=== PATIENT | male | born 1950 | race Caucasian/White ===

== ENCOUNTER 2025-09-11 11:50 | Outpatient (CLI) | payer MEDICARE, SELFPAY ==
--- OUTSIDE RECORDS SUMMARY | 2025-07-28 11:00 | XMS_ITS | Encounter Summary ---
Author Organization [facility] Address [address] [place] [address] Care Team Providers Care Charter Bus Driver Name Role Phone Gideon Parsons MD Primary Care Provider [phone] Reason for Referral * Cardiac (Routine) - Closed Specialty Diagnoses / Procedures Referred By Yanique t Referred To Contact Diagnoses Premature ventricular contractions (PVCs) (VPCs) Abnormal EKG Procedures Holter Monitor - 72 Hour Up To 15 Days Anyi Palafox APRN [address] [place] [address] Phone: tel: fax: [facility] [address] [place] [address] Phone: tel: fax: Referral ID Status Reason Start Date Expiration Date Visits Re quested Visits Authorized [id number] Closed 07/28/2025 10/27/2026 1 1 * Medical Care (Routine) - Closed Specialty Diagnoses / Procedures Referred By Yanique aguilera Referred To Contact Diagnoses Premature ventricular contractions (PVCs) (VPCs) Snoring Overweight (BMI 25.0-29.9) Abnormal EKG Procedures Home Sleep Study Anyi Palafox APRN [address] [place] [address] Phone: tel: fax: [facility] [address] [place] [address] Phone: tel: fax: Referral ID Status Reason Start Date Expiration Date Visits Re quested Visits Authorized [id number] Closed 07/28/2025 10/27/2026 1 1 * Diagnostic Imaging (Routine) - Closed Specialty Diagnoses / Procedures Referred By Yanique aguilera Referred To Contact Diagnoses Premature ventricular contractions (PVCs) (VPCs) Abnormal EKG Procedures Adult Stress Echo W/ Cont or Stress Agent if Necessary Per Protocol Anyi Palafox APRN [address] [place] [address] Phone: tel: fax: [facility] [address] [place] [address] Phone: tel: fax: Referral ID Status Reason Start Date Expiration Date Visits Re quested Visits Authorized [id number] Closed 07/28/2025 10/27/2026 1 1 Reason for Visit * Reason Comments Palpitations Pt is here for new p atient appointment. Referred by primary care provider Dr. ParsonsPt complains of palpitations for 6 months Pt denies shortness of breath or chest pain.Pt states he does snoreNeck size 16 * Consultation (Urgent) - Closed Specialty Diagnoses / Procedures Referred By Yanique aguilera Referred To Contact Cardiology Diagnoses Primary insomnia INCREASING IN FREQUENCY PVCs Gideon Parsons MD [address] [facility] [address] [place] [address] Phone: tel: fax: Rosa Winkler MD [address] [place] [address] Phone: tel: fax: Referral ID Status Reason Start Date Expiration Date Visits Re quested Visits Authorized [id number] Closed 06/12/2025 09/11/2026 1 1 Encounter Details Date Type Department Care Team (Late st Contact Info) Description 07/28/2025 11:00 AM EST Office Visit [facility] [address], [place] [address] Anyi Palafox APRN [address] [place] [address] Abnormal EKG; Premature ventricular contractions (PVCs) (VPCs); Palpitations; Bradycardia; Primary hypertension; Snoring; Overweight (BMI 25.0-29.9) Social History Tobacco Use Types Packs/Day Years Used Date Smoking Tobacco: Never Smokeless Tobacco: Never Tobacco Cessation:Counseling Given: No Alcohol Use Standard Drinks/Week Comments Never 0 (1 standard drink = 0.6 oz pur e alcohol) Abuse Screen Answer Date Recorded Unsafe at Home or Work/School Not on file Feels Threatened by Someone? Not on file 08/2023 Does Anyone Keep You from Co ntacting Others or Doint Things Outside the Home? Not on file 07/05/2023 Physical Sign of Abuse Present Not on file 1 Housing Stability Answer Date Recorded Current Living Arrangements Not on file 06/24 Potentially Unsafe Housing Conditions Not on veto e 07/05/2023 Family and Community Support Answer Sony e Recorded Help with Day-to-Day Activities Not on file 07/05/2023 Lonely or Isolated Not on file 07/05/2023 Employment Answer Date Recorded Do you want help finding or keeping work or a annalise b? Not on file 07/05/2023 Disabilities Answer Date Recorded Concentrating, Remembering, or Making Decisions Difficulty Not on file 07/05/2023 Doing Errands Independently Difficulty Not on fi le 07/05/2023 Education Answer Date Recorded Help with school or training? Not on file Preferred Language Not on file 07/05/2023 Sex and Gender Information Value Date Recorded Sex Assigned at Male 07/21/2025 10:52 AM EDT Legal Sex Male 2:21 PM EST Gender Identity Not on file Sexual Orientation Straight 07/21/2025 10 :52 AM EDT documented as of this encounter Last Filed Vital Signs Vital Sign Reading Time Taken Comments Blood Pressure 124/74 07/28/2025 11:26 AM EST Pulse 68 07/28/2025 11:26 AM EST Temperature - - Respiratory Rate - - Oxygen Saturation 98% 07/28/2025 11:26 AM EST Inhaled Oxygen Concentration - - Weight 105 kg (231 lb 12.8 oz) 07/28/2025 11:26 AM EST Height 188 cm (6' 2 ) 07/28/2025 11:26 AM EST Body Mass Index 29.76 07/28/2025 11:26 AM EST documented in this encounter Progress Notes * Javy Anyi Restrepo, MELI - 07/28/2025 11:00 AM ESTAssociated Order(s): ECG 12 Lead Pre-Procedure Diagnose(s): Premature ventricular contractions (PVCs) (VPCs) Post-Procedure Diagnose(s): Premature ventricular contractions (PVCs) (VPCs) Images from the original note were not included. Date: 07/28/2025 Name: Reinier Macedo : 1950 PCP: Gideon Parsons MD REF: Gideon Parsons MD Sleep and/or Cardiology Consulting Provider Note ..Palpitations (Pt is here for new patient appointment. Referred by primary care provider Dr. Parsons/Pt complains of palpitations for 6 months Pt denies shortness of breath or chest pain./Pt states he does snore/Neck size 16) History of Present Illness 75-year-old male presents for cardiac care due to 6-month history of palpitations. Referred by PCP,Dr. Wyatt. No subjective palpitations, but EKG showed occasional extra beats. 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 No associated symptoms (SOB, dizziness, chest pain, swelling). Functional capacity unchanged. Under PCP care for 1 year. Previous physical exam and EKG normal. Sonogram normal. No stress test done. Active lifestyle, regular treadmill use. Daily caffeine intake: 1 cup of coffee. No tea. 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 No waking up tired or daytime sleepiness. 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 Plays basketball, frequent treadmill use at gym. 1 cupof coffee daily in the morning. [employer] Scale is (out of 24): Total score: 2 Cardiology and Sleep Related History: Review of Systems - Palpitations, PVCs, snoring, bradycardia Agrees to Lavelle There are no discontinued medications. Allergies Allergen Reactions Penicillins Itching Singulair [Montelukast] Itching Current Outpatient Medications: lisinopril (PRINIVIL,ZESTRIL) 10 MG tablet, Take 1 tablet by mouth Daily., Disp: , Rfl: mometasone (NASONEX) 50 MCG/ACT nasal spray, Administer 2 sprays into the nostril(s) as directed byprovider Daily., Disp: , Rfl: oxybutynin XL (DITROPAN-XL) 5 MG 24 hr tablet, Take 1 tablet by mouth Daily., Disp: , Rfl: Past Medical History: Diagnosis Date Colon polyps Hypertension Kidney stones Prostate cancer 07/2022 Patient Active Problem List Diagnosis Bradycardia Hypertension Colon polyps Premature ventricular contractions (PVCs) (VPCs) Snoring Overweight (BMI 25.0-29.9) Abnormal EKG Palpitations Family History Problem Relation Name Age of Onset Stroke Mother Diabetes Father Dementia Father family history includes Dementia in his father; Diabetes in his father; Stroke in his mother. Social History Socioeconomic History Marital status: Tobacco Use Smoking status: Never Smokeless tobacco: Never Vaping Use Vaping status: Never Used Substance and Sexual Activity Alcohol use: Never Drug use: Never Sexual activity: Defer Vital Signs: BP 124/74 (BP Location: Right arm, Patient Position: Sitting, Cuff Size: Adult) Pulse 68 Ht 188cm (74 ) Wt 105 kg (231 lb 12.8 oz) SpO2 98% BMI 29.76 kg/m?? Estimated body mass index is 29.76 kg/m?? as calculated from the following: Height as of this encounter: 188 cm (74 ). Weight as of this encounter: 105 kg (231 lb 12.8 oz). Physical Exam Vitals reviewed. Constitutional: Appearance: Normal appearance. He is well-developed. HENT: Head: Normocephalic and atraumatic. Eyes: General: No scleral icterus. Pupils: Pupils are equal, round, and reactive to light. Cardiovascular: Rate and Rhythm: Normal rate. Rhythm irregular. Heart sounds: Normal heart sounds. No murmur heard. Pulmonary: Breath sounds: Normal breath sounds. No wheezing or rhonchi. Musculoskeletal: General: Normal range of motion. Right lower leg: No edema. Left lower leg: No edema. Skin: General: Skin is warm and dry. Capillary Refill: Capillary refill takes less than 2 seconds. Coloration: Skin is not cyanotic. Nails: There is no clubbing. Neurological: Mental Status: He is alert and oriented to person, place, and time. Motor: No weakness. Gait: Gait normal. Psychiatric: Mood and Affect: Mood normal. Behavior: Behavior is cooperative. Thought Content: Thought content normal. Physical Exam Heart: PVCs noted on auscultation. Lungs: Clear bilaterally. Results Sonogram: Normal. EKG: PVCs. ECG 12 Lead Date/Time: 07/30/2025 12:39 PM Performed by: Anyi Palafox APRN Authorized by: Anyi Palafox APRN Comparison: not compared with previous ECG Previous ECG: no previous ECG available Rhythm: sinus rhythm Ectopy: multifocal PVCs Rate: normal BPM: 75 ST Segments: ST segments normal T Waves: T waves normal QRS axis: normal Other: no other findings Other findings: non-specific ST-T wave changes Clinical impression: abnormal EKG Comments: Frequent ventricular premature complexes in a bigeminal pattern. Note from PCP states recent EKG May 2025 sinus rhythm with PVCs. Assessment and Plan Diagnoses and all orders for this visit: 1. Abnormal EKG - Adult Stress Echo W/ Cont or Stress Agent if Necessary Per Protocol; Future - Home Sleep Study; Future - Holter Monitor - 72 Hour Up To 15 Days; Future 2. Premature ventricular contractions (PVCs) (VPCs) - ECG 12 Lead - Adult Stress Echo W/ Cont or Stress Agent if Necessary Per Protocol; Future - Home Sleep Study; Future - Holter Monitor - 72 Hour Up To 15 Days; Future 3. Palpitations 4. Bradycardia 5. Primary hypertension 6. Snoring - Home Sleep Study; Future 7. Overweight (BMI 25.0-29.9) - Home Sleep Study; Future Assessment & Plan - Apply Holter monitor for 2 weeks. - Note strenuous activities during monitoring. - Schedule stress test. - Discuss risks/benefits of stress test. - Limit caffeine to 1 cup of coffee/day. - Need copy of echo that PCP did - Recommend home sleep study. - Discuss link between sleep apnea and PVCs. - Explain home sleep study procedure and benefits. Follow-up: After Holter monitor and stress test. Recommendations: ER if symptoms increase and Report if any new/changing symptoms immediately Follow Up Return for After testing. Patient or patient passenger service representative verbalized consent for the use of Ambient Listening during the visit with Anyi Palafox APRN for chart documentation. 07/30/2025 12:45 EST Anyi Palafox APRN 07/28/2025 Please note that this explicitly excludes time spent on other separate billable services such as performing procedures or test interpretation, when applicable. This note was created using dictation software which occasionally transcribes nonsensical phrases. Please contact the provider if any clarification is needed. documented in this encounter Plan of Treatment Scheduled Orders Name Type Priority Associated Diagnoses Orde r Schedule Home Sleep Study Sleep Center Routine Premature ventricular contractions (PVCs) (VPCs) Snoring Overweight (BMI 25.0-29.9) Abnormal EKG Expected: 01/24/2026, Expires: 07/28/2026 Scheduled Procedures Name Priority Associated Diagnoses Date/Ti me Left Heart Cath w/ Grafts and Coronaries Abnormal stress test LEFT HEART CATH w/cors Abnormal stress test documented as of this encounter Procedures Procedure Name Priority Date/Time Associated Diagnosis Comments ECG 12-LEAD Routine 07/28/2025 12:39 PM EST Premature ventricular contractions (PVCs) (VPCs) documented in this encounter Results * SE QUAD ONLY W/ EXERCISE (08/12/2025 11:23 AM EST) Anatomical Region Laterality Modality Ultrasound Narrative 08/12/2025 4:23 PM EST Abnormal stress echo consistent with an intermediate risk study for myocardial ischemia. The following left ventricular wall segments are hypokinetic: mid anterior, apical anterior and mid anteroseptal. PVCs before during and after the study. Rest ECG Baseline ECG of normal sinus rhythm noted at rest. PVCs noted. There was no ST segment deviation noted. Stress ECG Stress ECG of normal sinus rhythm noted. Normal ECG with no significant stress induced changes noted. There was no ST segment deviation noted during stress. Arrhythmias during stress: occasional PVCs. Arrhythmias were not significant during stress. Stress ECG was interpretable and is consistent with a normal stress ECG. Ventricle Size / Description Segment augmentation had a normal response to stress. Cavity size behaved normally in response to stress. Stress Description A stress test was performed following the Al protocol. The patient reached the end of the protocol and achieved the target heart rate. The patient experienced no angina during the stress test. Blood pressure demonstrated a normal response to stress. Heart rate demonstrated a normal response to stress. Overall, the patient's exercise capacity was normal. Stress Echo - Peak Stress Findings Post stress images with adequate visualization of myocardium to assess for ischemia. Abnormal stress echo consistent with an intermediate risk study for myocardial ischemia. Recovery ECG During recovery, the patient complained of no significant symptoms following stress. Sinus rhythm was noted during recovery. Normal ECG with no significant recovery phase changes noted. There was no ST segment deviation noted during recovery. Arrhythmias during recovery: occasional PVC's. Arrhythmias were not significant during recovery. Test [employer] ECG [place] Wall Scoring Score Index: 1.18 The following segments are hypokinetic: mid anterior, mid anteroseptal and apical anterior. All other segments are normal. Anyi Kaye Javy GARRISON CV ECHO ORDERABLES Final Result * HOLTER MONITOR >7DAYS UP TO 15 DAYS ([id number]) (07/28/2025 2:54 PM EST) Heart rate (average) 75 CV SUBSTITUTED RESULTING AGENCY Heart rate minimum 51 CV SUBSTITUTED RESULTING AGENCY Heart rate maximum 216 CV SUBSTITUTED RESULTING AGENCY Anatomical Region Laterality Modality Ultrasound Narrative 08/24/2025 6:09 PM EST An abnormal monitor study. Nonsustained ventricular tachycardia, frequent. Fastest episode 216 bpm. Longest episode 10 beats. Patient events corresponded to ventricular ectopy or couplets. Study Description Monitor placed on patient by QUANG MC MA on 07/28/2025 at 10:00 EST. Instructions were provided to patient on use of holter monitor and duration of monitoring. The monitor was scanned on 08/19/2025. The patient was monitored for 11 days 18 hours and 5 minutes. Indications for this exam include dizziness and ABNORMAL EKG. Total beats: [id number]. Average HR: 75. Min HR: 51. Max HR: 216. Study Impressions An abnormal monitor study. Nonsustained ventricular tachycardia, frequent. Fastest episode 216 bpm. Longest episode 10 beats. Patient events corresponded to ventricular ectopy or couplets. Anyi Palafox APRN CV CARDIAC SERVICES ORDERABLES Final Result * ECG 12-LEAD (07/28/2025 12:39 PM EST) Narrative ECG - 07/28/2025 12:39 PM EST Anyi Palafox APRN 07/30/2025 12:48 PM ECG 12 Lead Date/Time: 07/30/2025 12:39 PM Performed by: Anyi Palafox APRN Authorized by: Anyi Palafox APRN Comparison: not compared with previous ECG Previous ECG: no previous ECG available Rhythm: sinus rhythm Ectopy: multifocal PVCs Rate: normal BPM: 75 ST Segments: ST segments normal T Waves: T waves normal QRS axis: normal Other: no other findings Other findings: non-specific ST-T wave changes Clinical impression: abnormal EKG Comments: Frequent ventricular premature complexes in a bigeminal pattern. Note from PCP states recent EKG May 2025 sinus rhythm with PVCs. Procedure Note Anyi Palafox APRN - 07/28/2025 11:00 AM EST Images from the original note were not included. Date: 07/28/2025 Name: Reinier Macedo : 1950 PCP: Gideon Parsons MD REF: Gideon Parsons MD Sleep and/or Cardiology Consulting Provider Note ..Palpitations (Pt is here for new patient appointment. Referred byprimary care provider Dr. Parsons/Pt complains of palpitations for 6 monthsPt denies shortness of breath or chest pain./Pt states he does snore/Necksize 16) History of Present Illness 75-year-old male presents for cardiac care due to 6-month history ofpalpitations. Referred by PCP, Dr. Wyatt. No subjective palpitations, butEKG showed occasional extra beats. 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 No associatedsymptoms (SOB, dizziness, chest pain, swelling). Functional capacityunchanged. Under PCP care for 1 year. Previous physical exam and EKGnormal. Sonogram normal. No stress test done. Active lifestyle, regulartreadmill use. Daily caffeine intake: 1 cup of coffee. No tea. 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 1 cup of coffee daily in the morning. [employer] Scale is (out of 24): Total score: 2 Cardiology and Sleep Related History: Review of Systems - Palpitations, PVCs, snoring, bradycardia Agrees to [place]elle There are no discontinued medications. Allergies Allergen Reactions Penicillins Itching Singulair [Montelukast] Itching Current Outpatient Medications: lisinopril (PRINIVIL,ZESTRIL) 10 MG tablet, Take 1 tablet by mouthDaily., Disp: , Rfl: mometasone (NASONEX) 50 MCG/ACT nasal spray, Administer 2 sprays intothe nostril(s) as directed by provider Daily., Disp: , Rfl: oxybutynin XL (DITROPAN-XL) 5 MG 24 hr tablet, Take 1 tablet by mouthDaily., Disp: , Rfl: Past Medical History: Diagnosis Date Colon polyps Hypertension Kidney stones Prostate cancer 07/2022 Patient Active Problem List Diagnosis Bradycardia Hypertension Colon polyps Premature ventricular contractions (PVCs) (VPCs) Snoring Overweight (BMI 25.0-29.9) Abnormal EKG Palpitations Family History Problem Relation Name Age of Onset Stroke Mother Diabetes Father Dementia Father family history includes Dementia in his father; Diabetes in his father;Stroke in his mother. Social History Socioeconomic History Marital status: Tobacco Use Smoking status: Never Smokeless tobacco: Never Vaping Use Vaping status: Never Used Substance and Sexual Activity Alcohol use: Never Drug use: Never Sexual activity: Defer Vital Signs: BP 124/74 (BP Location: Right arm, Patient Position: Sitting, Cuff Size:Adult) Pulse 68 Ht 188 cm (74 ) Wt 105 kg (231 lb 12.8 oz) SpO2 98% BMI 29.76 kg/m Estimated body mass index is 29.76 kg/m as calculated from thefollowing: Height as of this encounter: 188 cm (74 ). Weight as of this encounter: 105 kg (231 lb 12.8 oz). Physical Exam Vitals reviewed. Constitutional: Appearance: Normal appearance. He is well-developed. HENT: Head: Normocephalic and atraumatic. Eyes: General: No scleral icterus. Pupils: Pupils are equal, round, and reactive to light. Cardiovascular: Rate and Rhythm: Normal rate. Rhythm irregular. Heart sounds: Normal heart sounds. No murmur heard. Pulmonary: Breath sounds: Normal breath sounds. No wheezing or rhonchi. Musculoskeletal: General: Normal range of motion. Right lower leg: No edema. Left lower leg: No edema. Skin: General: Skin is warm and dry. Capillary Refill: Capillary refill takes less than 2 seconds. Coloration: Skin is not cyanotic. Nails: There is no clubbing. Neurological: Mental Status: He is alert and oriented to person, place, and time. Motor: No weakness. Gait: Gait normal. Psychiatric: Mood and Affect: Mood normal. Behavior: Behavior is cooperative. Thought Content: Thought content normal. Physical Exam Heart: PVCs noted on auscultation. Lungs: Clear bilaterally. Results Sonogram: Normal. EKG: PVCs. ECG 12 Lead Date/Time: 07/30/2025 12:39 PM Performed by: Anyi Palafox APRN Authorized by: Anyi Palafox APRN Comparison: not comparedwith previous ECG Previous ECG: no previous ECG available Rhythm: sinus rhythm Ectopy: multifocal PVCs Rate: normal BPM: 75 ST Segments: ST segments normal T Waves: T waves normal QRS axis: normal Other: no other findings Other findings: non-specific ST-T wave changes Clinical impression: abnormal EKG Comments: Frequent ventricular premature complexes in a bigeminal pattern.Note from PCP states recent EKG May 2025 sinus rhythm with PVCs. Assessment and Plan Diagnoses and all orders for this visit: 1. Abnormal EKG - Adult Stress Echo W/ Cont or Stress Agent if Necessary Per Protocol;Future - Home Sleep Study; Future - Holter Monitor - 72 Hour Up To 15 Days; Future 2. Premature ventricular contractions (PVCs) (VPCs) - ECG 12 Lead - Adult Stress Echo W/ Cont or Stress Agent if Necessary Per Protocol;Future - Home Sleep Study; Future - Holter Monitor - 72 Hour Up To 15 Days; Future 3. Palpitations 4. Bradycardia 5. Primary hypertension 6. Snoring - Home Sleep Study; Future 7. Overweight (BMI 25.0-29.9) - Home Sleep Study; Future Assessment & Plan - Apply Holter monitor for 2 weeks. - Note strenuous activities during monitoring. - Schedule stress test. - Discuss risks/benefits of stress test. - Limit caffeine to 1 cup of coffee/day. - Need copy of echo that PCP did - Recommend home sleep study. - Discuss link between sleep apnea and PVCs. - Explain home sleep study procedure and benefits. Follow-up: After Holter monitor and stress test. Recommendations: ER if symptoms increase and Report if any new/changingsymptoms immediately Follow Up Return for After testing. Patient or patient passenger service representative verbalized consent for the use ofAmbient Listening during the visit with Anyi Palafox APRN forchart documentation. 07/30/2025 12:45 EST Anyi Palafox APRN 07/28/2025 Please note that this explicitly excludes time spent on other separatebillable services such as performing procedures or test interpretation,when applicable. This note was created using dictation software whichoccasionally transcribes nonsensical phrases. Please contact the providerif any clarification is needed. Anyi Palafox APRN ECG ORDERABLES [place] Result - Final ECG documented in this encounter Visit Diagnoses Diagnosis Abnormal EKG Nonspecific abnormal electrocardiogram (ECG) (EKG) Premature ventricular contractions (PVCs) (VPCs) Other premature beats Palpitations Bradycardia Other specified cardiac dysrhythmias Primary hypertension Unspecified essential hypertension Snoring Other dyspnea and respiratory abnormality Overweight (BMI 25.0-29.9) Overweight Premature ventricular contractions (PVCs) (VPCs) Other premature beats Abnormal EKG Nonspecific abnormal electrocardiogram (ECG) (EKG) Premature ventricular contractions (PVCs) (VPCs) Other premature beats Abnormal EKG Nonspecific abnormal electrocardiogram (ECG) (EKG) documented in this encounter Care Teams Charter Bus Driver Relationship Specialty Start Date End Date Gideon Parsons MD [address] [facility] [address] [place] [address] PCP - General Adolescent Medicine 07/28/25 documented as of this encounter
--- OUTSIDE RECORDS SUMMARY | 2025-07-28 14:55 | XMS_ITS | Encounter Summary ---
Author Organization [facility] Address [address] [place] [id number] Care Team Providers Care Midlevel Provider Name Role Phone Gideon Parsons MD Primary Care Provider + [phone] Reason for Visit * Cardiac (Routine) - Closed Specialty Diagnoses / Procedures Referred By Contac t Referred To Contact Diagnoses Premature ventricular contractions (PVCs) (VPCs) Abnormal EKG Procedures Holter Monitor - 72 Hour Up To 15 Days Anyi Palafox APRN [address] [place] [address] Phone: tel: fax: [facility] [address] [place] [address] Phone: tel: fax: Referral ID Status Reason Start Date Expiration Date Visits Re quested Visits Authorized [id number] Closed 07/28/2025 10/27/2026 1 1 Encounter Details Date Type Department Care Team (Latest Contact Info) Description 07/28/2025 2:55 PM EST Ancillary Procedure [facility] [address] [place] [address] [place] [address] Premature ventricular contractions (PVCs) (VPCs); Abnormal EKG Social History Tobacco Use Types Packs/Day Years Used Date Smoking Tobacco: Never Smokeless Tobacco: Never Alcohol Use Standard Drinks/Week Comments Never 0 [...] AM EDT documented as of this encounter Plan of Treatment Scheduled Procedures Name Priority Associated Diagnoses Date/Ti me Left Heart Cath w/ Grafts and Coronaries Abnormal stress test LEFT HEART CATH w/cors Abnormal stress test documented as of this encounter Procedures Procedure Name Priority Date/Time Associated Diagnosis Comments HOLTER MONITOR >7DAYS UP TO 15 DAYS ([id number]) Routine 07/28/2025 2:54 PM EST Premature ventricular contractions (PVCs) (VPCs) Abnormal EKG documented in this encounter Results * HOLTER MONITOR >7DAYS UP TO 15 DAYS ([id number]) (07/28/2025 2:54 PM EST) Heart rate (average) [...] include dizziness and ABNORMAL EKG. Total beats: 8219591. Average HR: 75. Min HR: 51. Max HR: 216. Study Impressions An abnormal monitor study. Nonsustained ventricular tachycardia, frequent. Fastest episode 216 bpm. Longest episode 10 beats. Patient events corresponded to ventricular ectopy or couplets. [facility] Kaye Palafox APRN CV CARDIAC SERVICES ORDERABLES Final Result documented in this encounter Visit Diagnoses Diagnosis Premature ventricular contractions (PVCs) (VPCs) Other premature beats Abnormal EKG Nonspecific abnormal electrocardiogram (ECG) (EKG) documented in this encounter Care Teams Midlevel Provider Relationship Specialty Start Date End Date Gideon Parsons MD [address] [place] [address] [address] [facility] [address] [facility] [place] [address] PCP - General Adolescent Medicine 07/28/25 documented as of this encounter
--- OUTSIDE RECORDS SUMMARY | 2025-08-12 10:30 | XMS_ITS | Encounter Summary ---
Author Organization [facility] Address [address] [place] [address] Care Team Providers Care Blow Down Helper Name Role Phone Gideon Parsons MD Primary Care Provider + [phone] Reason for Visit * Diagnostic Imaging (Routine) - Closed Specialty Diagnoses / Procedures Referred By Contac t Referred To Contact Diagnoses Premature ventricular contractions (PVCs) (VPCs) Abnormal EKG Procedures Adult Stress Echo W/ Cont or Stress Agent if Necessary Per Protocol Anyi Palafox APRN [address] [place] [address] Phone: tel: fax: [facility] [address] [place] [address] Phone: tel: fax: Referral ID Status Reason Start Date Expiration Date Visits Re quested Visits Authorized [id number] Closed 07/28/2025 10/27/2026 1 1 Encounter Details Date Type Department Care Team (Latest Contact Info) Description 08/12/2025 10:30 AM EST Ancillary Procedure [facility] [place] [address] Premature ventricular contractions (PVCs) (VPCs); Abnormal [...] Sign Reading Time Taken Comments Blood Pressure 132/80 08/12/2025 10:45 AM EST Pulse 81 08/12/2025 10:45 AM EST Temperature - - Respiratory Rate - - Oxygen Saturation - - Inhaled Oxygen Concentration - - Weight 104 kg (230 lb) 08/12/2025 10:45 AM EST Height 193 cm (6' 4 ) 08/12/2025 10:45 AM EST Body Mass Index 28 08/12/2025 10:45 AM EST documented in this encounter Plan of Treatment Scheduled Orders Name Type Priority Associated Diagnoses Order Schedule Stress Test Scan Stress Echocardiography Ordered: 08/12/2025 Scheduled Procedures Name Priority Associated Diagnoses Date/Ti me Left Heart Cath w/ Grafts and Coronaries Abnormal stress test LEFT HEART CATH w/cors Abnormal stress test documented as of this encounter Procedures Procedure Name Priority Date/Time Associated Diagnosis Comments SE QUAD ONLY W/ EXERCISE Routine 08/12/2025 11:23 AM EST Premature ventricular contractions (PVCs) (VPCs) Abnormal EKG documented in this encounter Results * SE [...] Arrhythmias were not significant during recovery. Test Production Leader ECG [employer] Wall Scoring Score Index: 1.18 The following segments are hypokinetic: mid anterior, mid anteroseptal and apical anterior. All other segments are normal. Anyi Palafox APRN CV ECHO ORDERABLES Final Result documented in this encounter Visit Diagnoses Diagnosis Premature ventricular contractions (PVCs) (VPCs) Other premature beats Abnormal EKG Nonspecific abnormal electrocardiogram (ECG) (EKG) documented in this encounter Care Teams Blow Down Helper Relationship Specialty Start Date End Date Gideon Parsons MD [address] [place] [address] [place] [address] PCP - General Adolescent Medicine 07/28/25 documented as of this encounter
--- OUTSIDE RECORDS SUMMARY | 2025-09-02 14:15 | XMS_ITS | Encounter Summary ---
Author Organization [facility] Address [address] [place] [address] Care Team Providers Care Retirement Actuary Name Role Phone Gideon Parsons MD Primary Care Provider + [phone] Reason for Visit * Reason Comments Abnormal ECG Pt is here for follo w up on stress test and Holter resultsPt states he has been doing good. No issuesPt denies shortness of breath, chest pain or palpations. Encounter Details Date Type Department Care Team (Late st Contact Info) Description 09/02/2025 2:15 PM EST Office Visit [facility] [address] [place], [place] [address] Anyi Palafox APRN [address] [place] [address] V-tach; Holter monitor, abnormal; Abnormal stress test Social History Tobacco Use Types Packs/Day Years [...] Sign Reading Time Taken Comments Blood Pressure 130/70 09/02/2025 1:56 PM EST Pulse 70 09/02/2025 1:56 PM EST Temperature - - Respiratory Rate - - Oxygen Saturation 98% 09/02/2025 1:56 PM EST Inhaled Oxygen Concentration - - Weight - - Height 193 cm (6' 3.98 ) 09/02/2025 1:56 PM EST Body Mass Index - - documented in this encounter Progress Notes * Anyi Palafox, MELI - 09/02/2025 2:15 PM EST Images from the original note were not included. Date: 09/02/2025 Name: Reinier Macedo : 1950 PCP: Gideon Parsons MD REF: No ref. provider found Sleep and/or Cardiology Consulting Provider Note ..Abnormal ECG (Pt is here for follow up on stress test and Holter results/Pt states he has been doing good. No issues/Pt denies shortness of breath, chest pain or palpations. ) History of Present Illness The patient is a 75-year-old male presenting for follow-up on holter and stress test. He is accompanied by his today. We started him on Metoprolol on 08/25/25 over the phone. Discussed recent abnormal holter and stress test. Also discussed that Dr. Winkler would like for himto get a left heart catherization. He reports satisfactory response to metoprolol, with initial mild grogginess now resolved. His heart rate no longer drops to low levels, as indicated by his watch, and self-administered EKGs have returned normal results. He has never had symptoms of his newly found Vtach. Holter monitor revealed non-sustained ventricular tachycardia. Concern about potential heart blockage led to recommendation for left heart catheterization. Heart rate peaked at 216 bpm, indicating risk for serious complications. Per patient, Dr. Parsons suggested a CCTA. Discussed CCTA scan as an alternative to immediate catheterization; CCTA can identify blockage but may be inconclusive if calcium is detected. Reports no current symptoms of shortness of breath or other cardiac issues. Blood pressure remains stable, with no significant changes during stress test. Agrees to [place] 1. nVT 2. Abnormal BHAVIK 08/24/25 Holter- An abnormal monitor study. Nonsustained ventricular tachycardia, frequent. Fastest episode 216 bpm. Longest episode 10 beats. Patient events corresponded to ventricular ectopy or couplets. 08/12/25 BHAVIK ?? Abnormal stress echo consistent with an intermediate risk study for myocardial ischemia. ?? The following left ventricular wall segments are hypokinetic: mid anterior, apical anterior and mid anteroseptal. ?? PVCs before during and after the study. Medications Discontinued During This Encounter Medication Reason mometasone (NASONEX) 50 MCG/ACT nasal spray *Therapy completed Allergies Allergen Reactions Ciprofloxacin Hives Penicillins Itching Singulair [Montelukast] Itching Current Outpatient Medications: ipratropium (ATROVENT) 0.06 % nasal spray, Administer 2 sprays into the nostril(s) as directed by provider 2 (Two) Times a Day., Disp: , Rfl: lisinopril (PRINIVIL,ZESTRIL) 10 MG tablet, Take 1 tablet by mouth Daily., Disp: , Rfl: metoprolol tartrate (LOPRESSOR) 25 MG tablet, Take 1 tablet by mouth 2 (Two) Times a Day., Disp: 60tablet, Rfl: 0 Mirabegron ER (Myrbetriq) 50 MG tablet sustained-release 24 hour 24 hr tablet, Take 50 mg by mouth Daily., Disp: , Rfl: oxybutynin XL (DITROPAN-XL) 5 MG 24 hr tablet, Take 1 tablet by mouth Daily., Disp: , Rfl: Past Medical History: Diagnosis Date Colon polyps Hypertension Kidney stones Prostate cancer 07/2022 Patient Active Problem List Diagnosis Bradycardia Hypertension Colon polyps Premature ventricular contractions (PVCs) (VPCs) Snoring Overweight (BMI 25.0-29.9) Abnormal EKG Palpitations V-tach Holter monitor, abnormal Abnormal stress test Family History Problem Relation Name Age of [...] Never Sexual activity: Defer Vital Signs: BP 130/70 (BP Location: Right arm, Patient Position: Sitting, Cuff Size: Adult) Pulse 70 Ht 193cm (75.98 ) SpO2 98% BMI 28.01 kg/m?? Estimated body mass index is 28.01 kg/m?? as calculated from the following: Height as of this encounter: 193 cm (75.98 ). Weight as of 08/12/25: 104 kg (230 lb). Physical Exam Vitals reviewed. Constitutional: Appearance: Normal appearance. He is well-developed. HENT: Head: Normocephalic and atraumatic. Eyes: General: No scleral icterus. Pupils: Pupils are equal, round, and reactive to light. Cardiovascular: Rate and Rhythm: Normal rate and regular rhythm. Heart sounds: Normal heart sounds. No murmur [...] Content: Thought content normal. Physical Exam Heart: Regular rate, no murmurs, gallops, or rubs. Extremities: Peripheral pulses intact. Results Holter monitor: Ventricular tachycardia. Assessment and Plan Diagnoses and all orders for this visit: 1. V-tach 2. Holter monitor, abnormal 3. Abnormal stress test Assessment & Plan - Holter monitor revealed non-sustained episodes. - Intermediate stress test results. - Heart rate peaked at 216 bpm, indicating potential blockage. - Currently asymptomatic on metoprolol. - Order CCTA to investigate cause. - Continue watch monitoring and metoprolol. - If CCTA negative, catheterization may not be necessary. - If calcium detected, catheterization required to assess blockage. - Ventricular tachycardia patient education packet given to patient - He would like to go home and think it over and will let us know if he wants to do a CCTA or left heart cath. Recommendations: ER if symptoms increase and Report if any new/changing symptoms immediately Follow Up Return for Patient to call. Patient or patient lifeline representatives verbalized consent for the use of Ambient Listening during the visit with Anyi Palafox APRN for chart documentation. 09/02/2025 15:05 EST Anyi Palafox APRN 09/02/2025 Please note that this explicitly excludes time spent on other separate billable services such as performing procedures or test interpretation, when applicable. This note was created using dictation software which occasionally transcribes nonsensical phrases. Please contact the provider if any clarification is needed. documented in this encounter Plan of Treatment Scheduled Procedures Name Priority Associated Diagnoses Date/Ti me Left Heart Cath w/ Grafts and Coronaries Abnormal stress test LEFT HEART CATH w/cors Abnormal stress test documented as of this encounter Visit Diagnoses Diagnosis V-tach Paroxysmal ventricular tachycardia Holter monitor, abnormal Abnormal stress test Other nonspecific abnormal cardiovascular system function study documented in this encounter Care Teams Retirement Actuary Relationship Specialty Start Date End Date Gideon Parsons MD [facility] [address] [place] [address] PCP - General Adolescent Medicine 07/28/25 documented as of this encounter
--- NOTE | 2025-09-11 11:53 | CT_ITS ---
APPROVED REPORT Granite Polisher Machine: CLINICAL INDICATION Chest Pain TECHNIQUE Image Acquisition: A 128 slice MDCT scanner (Bloggercea View) was used for data acquisition. A noncontrast coronary calcium scan was performed. A CT attenuation threshold of 130 Hounsfield units (HU) was used for the detection of calcium in contiguous voxels of 1 sq mm in area to be counted as individual lesions. Bolus tracking in the ascending aorta with a threshold of 180 HU was performed. Immediately afterwards, ECG synchronized cardiac CT was then performed from the cardiac base to apex using retrospective gating with ECG tube current modulation. A total of 85 mL of Isovue 370 mg/mL contrast medium was administered at 5 mL/sec followed by a saline flush using a biphasic injection protocol. A tube voltage of 120 KVp was used. The patient received the following medications prior to the cardiac CT. 0.8 mg of sublingual nitroglycerin The average heart rate at the time of acquisition was 60 bpm and regular. Image Reconstruction Transaxial images were reconstructed at 0.67 mm slide thickness. Data was reviewed interactively on an advanced workstation capable of 2 and 3-dimensional displays in all conventional reconstruction formats, including multiplanar reformations, maximum intensity projections, curved multiplanar reformations, and volume rendered reconstructions. When applicable, selected routine images describing the relevant coronary anatomy and pathology were saved and sent to PACS. Complications None Technical Quality Overall image quality was good. Coronary artery opacification was adequate. Total DLP (Dose-Length Product) is 1669.7 mGy-cm. The reported value represents the total of one or more individual components during the CT acquisition of this date and at this time, and as such, the same value may appear in more than one CT report depending on the interpreting/reporting physicians. COMPARISON None FINDINGS CT Coronary Calcium Scoring LMA (Left Main Artery) = 78 LAD (Left Anterior Descending) = 450 LCX (Left Coronary Circumflex) = 0 RCA (Right Coronary Artery) = 169 Total Calcium Score = 697 using the AJ-130 method. The observed calcium score of 697 is at 68th percentile for subjects of the same age, sex, and race/ethnicity. The interpretation of the calcium heart score is based on the following continuum*: 0 = no calcified plaque detected (risk of coronary artery disease is very low ??? less than 5%) 1-10 = calcium detected in extremely minimal levels (risk of coronary diseases is still low ??? less than 10%) 11-100 = mild levels of plaque detected with certainty (mild or minimal narrowing of heart arteries is likely) 101-400 = definite,at least moderate levels of plaque detected (relatively high risk of a heart attack within 3-5 years) >401-999 = extensive levels of plaque detected (high risk of heart attack, high levels of vascular disease are present, high likelihood of at least one significant coronary narrowing) *The calcium heart score quantifies the burden of coronary calcification/plaque in the coronary arteries. The calcium heart score is not able to evaluate the presence or burden of non-calcified (i.e. soft) plaque. There is also calcification in the aortic valve. Coronary CT Angiography The coronary arterial system is right dominant. Quantitative Stenosis Grading: Left Main (LM): The left main originates normally from the left sinus of Valsalva. The LM bifurcates into the left anterior descending artery and left circumflex artery. The LM is patent with no evidence of atherosclerosis. Left Anterior Descending (LAD) and Diagonal Branches: The LAD gives off 3 diagonal branch(es). There is mixed calcified/non-calcified plaque in the proximal and mid LAD segments, with up to 50-70% luminal stenosis. There is no evidence of LAD-myocardial bridge. Left Circumflex (LCX) and Obtuse Marginals (OM): The LCX gives off 1 Obtuse Marginal (OM) branch(es). There is non-calcified plaque in the proximal LCX segment, with up to 25% luminal stenosis. Right Coronary Artery (RCA): The RCA originates normally from the right sinus of Valsalva. The RCA gives off a posterior descending artery (PDA) and posterolateral (PL) branches. There is mixed calcified/non-calcified plaque in the proximal RCA segment, with up to 50-70% luminal stenosis. Non-Coronary Cardiac Findings: Analysis of the left ventricular (LV) structure and function was performed after 3-D reconstruction of the LV from axial images, with user-corrected automatic contouring for assessment of LV volumes and user-defined reconstruction from oblique planes for measurement of 3-D cardiac structure and function. -The left ventricle systolic function is normal. -There is no left atrial appendage filling defect. Two right pulmonary veins and two left pulmonary veins drain normally into the left atrium. -No pericardial thickening or calcification. -Central and branch pulmonary arteries in the [id number] are unremarkable. -Thoracic aorta within the visualized thoracic aortic-branches in the [id number]-ht-[id number] is unremarkable. Extracardiac Structures No significant extra-cardiac findings. Note, however, that this study is focused on the cardiac findings. IMPRESSION -Presence of coronary calcification with an Agatston score = 697 using the AJ-130 method. -The observed calcium score of 697 is at 68th percentile for subjects of the same age, sex, and race/ethnicity. -Multivessel atherosclerotic coronary disease, with possible evidence of significant flow-limiting atherosclerosis of the LAD and/or RCA segments. -CAD-RADS 3. Management recommendations per ACC/AHA guidelines*, as clinically appropriate. *Recommendations: CAD RADS 0: Reassurance. Consider non-atherosclerotic causes of chest pain. CAD RADS 1: Consider non-atherosclerotic causes of chest pain. Consider preventive therapy and risk factor modification. CAD RADS 2: Consider non-atherosclerotic causes of chest pain. Consider preventive therapy and risk factor modification, particularly for patients with nonobstructive plaque in multiple segments. CAD RADS 3: Consider further functional testing. Consider symptom-guided anti-ischemic and preventive pharmacotherapy as well as risk factor modification per published guideline statements. CAD RADS 4A: Consider further functional testing or invasive coronary angiography with revascularization per published guideline statements. Consider symptom-guided anti-ischemic and preventive pharmacotherapy as well as risk factor modification per published guideline statements. CAD RADS 4B: Invasive coronary angiography recommended with revascularization per published guideline statements. Consider symptom-guided anti-ischemic and preventive pharmacotherapy as well as risk factor modification per published guideline statements. CAD RADS 5: Consider invasive angiography and/or viability assessment with revascularization per published guideline statements. Consider symptom-guided anti-ischemic and preventive pharmacotherapy as well as risk factor modification per published guideline statements. CRITICAL RESULT None COMMUNICATION Per this written report The coronary and cardiac findings of this CCTA were reviewed, reported, and signed by Oc Huston MD (Manager Reliability) Conclusion Electronically signed by : Maggie Huston MD 09/20/2025 18:38:17
--- OUTSIDE RECORDS SUMMARY | 2025-09-11 11:53 | XMS_ITS | Encounter Summary ---
Author Organization [employer] ([place], [place], [place], [place], [place]) Address [address] [place] [address] Care Team Providers Care General Dentist Name Role Phone Unavailable Primary Care Provider Unavailabl e Encounter Details Date Type Department Care Team (Late st Contact Info) Description 07/28/2021 Transcribed Document [facility] [place] [address] ProviderRadha MD [address] [place] [id number] Social History Tobacco Use Types Packs/Day Years Used Date Smoking Tobacco: Never Assessed Comments Unknown Sex and Gender Information Value Date Recorded Sex Assigned at Unknown 03/21/2022 8:54 PM CDT Legal Sex Male 8:54 PM CDT Gender Identity Not on file Sexual Orientation Not on file documented as of this encounter Miscellaneous Notes * Cerner Conversion Note - Radha ProviderMD - 07/28/2021 9:53 AM CDT Stroke/Warfarin Instructions Entered On: 07/28/2021 9:53 EDT Performed On: 07/28/2021 9:53 EDT by Keshia Hernandez RN-[employer] Stroke/Warfarin Instructions Stroke/TIA Discharge Ins : N/A Warfarin Discharge Ins : N/A Keshia Hernandez RN-[employer] - 07/28/2021 9:53 EDT documented in this encounter Plan of Treatment Not on file documented as of this encounter Visit Diagnoses Not on filedocumented in this encounter
--- OUTSIDE RECORDS SUMMARY | 2025-09-11 11:53 | XMS_ITS | Encounter Summary ---
Author Organization [facility] Address [address] [place] [id number] Care Team Providers Care Security Support Analyst Name Role Phone Gideon Parsons MD Primary Care Provider + [phone] Reason for Visit * Reason Onset Date Comments [place]VER[place] 09/07/2025 Encounter Details Date Type Department Care Team (Late st Contact Info) Description 09/07/2025 Telephone [facility] [address] [place] [address] Anyi Palafox APRN [address] [place] [address] [place] Social History Tobacco Use Types Packs/Day Years [...] AM EDT documented as of this encounter Miscellaneous Notes * Telephone Encounter - Paty Adames RN - 09/07/2025 3:15 PM EST Called pt to relate cath has been ordered and he will need precath labs. He is advised if he does not hear from scheduling within the week; to call our staff. He veralizes understanding. * Telephone Encounter - Paty Adames RN - 09/07/2025 2:10 PM EST Pt called in to today to discuss LHC. He was last seen in clinic by Kaye on 09/02/25 where cath vs CCTA discussed. He now wishes to pursue cath. Denies any further symptoms at this time. No follow up is scheduled. Please advise. * Telephone Encounter - Isha Simon RegSched Rep - 09/07/2025 1:57 PM EST Caller: Reinier Macedo Relationship: Self Best call back number: [phone]* What is the best time to reach you: ANY Who are you requesting to speak with (clinical staff, provider, specific staff member): CLINICAL ORSCHEDULING What was the call regarding: PT WOULD LIKE A CALL TO DISCUSS SCHEDULING A HEART CATH PROCEDURE. Is it okay if the provider responds through MyChart: CALL BACK PLEASE documented in this encounter Plan of Treatment Scheduled Procedures Name Priority Associated Diagnoses Date/Ti me Left Heart Cath w/ Grafts and Coronaries Abnormal stress test LEFT HEART CATH w/cors Abnormal stress test documented as of this encounter Visit Diagnoses Not on filedocumented in this encounter Care Teams Security Support Analyst Relationship Specialty Start Date End Date Gideon Parsons MD [address] [facility] [address] [facility] [address] [place] [address] PCP - General Adolescent Medicine 07/28/25 documented as of this encounter
--- OUTSIDE RECORDS SUMMARY | 2025-09-11 11:53 | XMS_ITS | Encounter Summary ---
Author Organization [employer] ([place], [place], [place], [place], [place]) Address [address] [place] [address] Care Team Providers Care Risk Control Analyst Name Role Phone Unavailable Primary Care Provider Unavailabl e Encounter Details Date Type Department Care Team (Late st Contact Info) Description 07/26/2021 Transcribed Document [facility] [facility] [place] [address] ProviderRadha MD [address] [place] [address] Social History Tobacco Use Types Packs/Day Years Used Date Smoking Tobacco: Never Assessed Comments Unknown Sex and Gender Information Value Date Recorded Sex Assigned at Unknown 03/21/2022 8:54 PM CDT Legal Sex Male 8:54 PM CDT Gender Identity Not on file Sexual Orientation Not on file documented as of this encounter Miscellaneous Notes * Cerner Conversion Note - Radha ProviderMD - 07/26/2021 11:22 AM CDT Patient: ROBBY MACEDO Age: 71 Years Sex: Male : 1950 Subjective Doing well. No N/V. Tiffany PO. Pain controlled. Intake & Output Intake & Output Totals Last 24 Hours (7a-7a) Intake (19 Events) Continuous Infusions (931.25 mL) Medications (154.5 mL) Oral Intake (500 mL) Surgical Services Intake (2000 mL) Output (6 Events) Ga Catheter (1560 mL) Surgical Drain/Tube Output: (130 mL) Input Total: 3585.75 mL Output Total: 1690 mL Balance: 1895.75 mL Vital Signs T: 36.6 ??C TMIN: 36.2 ??C TMAX: 36.6 ??C HR: 53(Monitored) RR: 16 BP: 120/53 SpO2: 98% Physical Exam NAD AO S NT CDI JN- s/s Ga -clear urine VTE Risk Total Score VTE Prophylaxis - Surgical Sequential Compression Device Start: 07/25/21 10:48:00 EDT, Bilateral, Length: Knee High, Continuous Order (KOMAL CORNEJO) Sequential Compression Device Start: 07/25/21 10:48:00 EDT, Bilateral, Length: Knee High, While patient is in bed, Continuous Order (KOMAL CORNEJO) Assessment/Plan Amb?IS Await pathology ADAT Malignant neoplasm of prostate C61, Malignant neoplasm of prostate C61 Orders: ocular lubricant, 1 Drop, Eyes Both, Drops, QID, PRN for Dry Eyes, Routine, Start 07/25/21 14:15:00 EDT Admit to Inpatient Medications Inpatient acetaminophen-HYDROcodone 325 mg-7.5 mg oral tablet, 2 Tab, Oral, Q4H, PRN Isopto Tears, 1 Drop, Eyes Both, QID, PRN lisinopril, 10 mg= 1 Tab, Oral, Daily loratadine, 10 mg= 1 Tab, Oral, Daily morphine, 3 mg= 0.75 mL, IV Push, Q2H, PRN Nicorette 2 mg oral transmucosal gum, 1 Each, Chew, Q1H, PRN Normal Saline Flush, 10 mL, IV Push, BID Normal Saline Flush, 10 mL, IV Push, See Comment, PRN Senokot S, 1 Tab, Oral, QAM Sodium Chloride 0.9% intravenous solution 1,000 mL, 1000 mL, IntraVENous Zofran, 4 mg= 2 mL, IV Push, Q4H, PRN Home Zuleika 12 Hour, PRN lisinopril, 10 mg, Oral, Daily loratadine, 10 mg, Oral, Daily Mucinex, 600 mg, Oral, Q12H, PRN multivitamin, 1 Tab, Oral, Daily Nasacort Allergy 24HR 55 mcg/inh nasal spray, 2 [place], Nasal, Daily Sudafed, Oral, Q6H, PRN Vitamin D3, 5,000 i units, Oral, Daily Routine Labs - Last 24 Hours JUL 26 09:11 138 108 20 / H 142 5.0 24 1.20 \ Anion Gap: 11 Calcium Level: 8.2 mg/dL Low Imaging Results (Last 24 Hours) No Radiology Results Found Problem List/Past Medical History Ongoing At risk for sleep apnea CA of prostate History of kidney stones HTN (hypertension) Seasonal allergies Historical No qualifying data Procedure/Surgical History Colonoscopy, kidney stone surgery, right knee arthroscopic surgery for cartilage removal 2009, tonsillectomy as 3-4 yr old. Allergies Singulair (Skin rash) penicillin (Skin rash) documented in this encounter Plan of Treatment Not on file documented as of this encounter Visit Diagnoses Not on filedocumented in this encounter
--- OUTSIDE RECORDS SUMMARY | 2025-09-11 11:53 | XMS_ITS | Encounter Summary ---
Author Organization [facility] Address [address] [address] Care Team Providers Care Licensed Journeyman Electrician Name Role Phone Gideon Parsons MD Primary Care Provider + [phone] Encounter Details Date Type Department Care Team (Latest Contact Info) Description 08/12/2025 Travel Social History Tobacco Use Types Packs/Day Years [...] on filedocumented in this encounter Care Teams Licensed Journeyman Electrician Relationship Specialty Start Date End Date Gideon Parsons MD [facility] [address] [place] [address] PCP - General Adolescent Medicine 07/28/25 documented as of this encounter
--- OUTSIDE RECORDS SUMMARY | 2025-09-11 11:53 | XMS_ITS | Encounter Summary ---
Author Organization [facility] Address [address] [place] [address] Care Team Providers Care Ticketer Name Role Phone Gideon Parsons MD Primary Care Provider + [phone] Encounter Details Date Type Department Care Team (Latest Contact Info) Description 07/28/2025 Travel Social History Tobacco Use Types Packs/Day [...] on filedocumented in this encounter Care Teams Ticketer Relationship Specialty Start Date End Date Gideon Parsons MD [facility] [address] [place] [address] PCP - General Adolescent Medicine 07/28/25 documented as of this encounter
--- OUTSIDE RECORDS SUMMARY | 2025-09-11 11:53 | XMS_ITS | Encounter Summary ---
Author Organization [employer] ([place], [place], [place], [place], [place]) Address [address] [place] [address] Care Team Providers Care Human Resources Operations Specialist Name Role Phone Unavailable Primary Care Provider Unavailabl e Encounter Details Date Type Department Care Team (Late st Contact Info) Description 07/26/2021 Transcribed Document [facility] [place] Family Medicine [facility] [place] [address] ProviderRadha MD [address] [place] [address] Social History Tobacco Use Types [...] Conversion Note - Radha ProviderMD - 07/26/2021 1:47 PM CDT Initial Discharge Planning Entered On: 07/26/2021 13:52 EDT Performed On: 07/26/2021 13:47 EDT by Hari Desouza, SEX WORKER OR ESCORT NON-EXEMPT Initial Assessment I Previously Documented Living Environment : No qualifying data available. Living Situation : Home Patient Lives With : Spouse Is the Patient a Caregiver at Home? : No Employment/Vocation : Retired Emergency Contact #1 : Zulma Macedo Emergency Contact #1 cell Emergency Contact #1 Relationship : Emergency Contact #2 : Donte Mathis Emergency Contact #2 Emergency Contact #2 Relationship : daughter Enter Doctors Name : Rich Connolly MD Does Patient have PCP Listed? : Yes Patient's Home Caregiver Name/Relationship : Zulma/ Patient's Home Caregiver Date Hospital Obtained Advance Directive : 07/22/2021 EDT Is Guardianship Needed : No Hari Desouza SOCIAL WORKER NON-EXEMPT - 07/26/2021 13:47 EDT Initial Assessment II Sensory and Motor Deficits : None Current Home Treatments and Equipment : None Hari Desouza SOCIAL WORKER NON-EXEMPT - 07/26/2021 13:47 EDT Discharge Needs I Anticipated Discharge To, CM : Home with family care Current Home Treatment/Equipment : Current Home Treatment/Equipment No qualifying data available. Post Acute/Home Treatments : None Documentation Status Complete : Yes Hari Desouza SOCIAL WORKER NON-EXEMPT - 07/26/2021 13:47 EDT Discharge Needs II Professional Skilled Services : Professional Skilled Services No qualifying data available. Needs Assistance with Transportation : No Discharge Options Discussed with Patient : Discharge transportation, DME, Home Health, Short term rehabilitation Patient Discharge Goal : Home Hari Desouza SOCIAL WORKER NON-EXEMPT - 07/26/2021 13:47 EDT Narrative Note Narrative Note : Day 2 with no DRG Low readmission risk Pt & seen at bedside Pt lives with spouse in private residence Pt is independent with ADLs Pt has had all Covid vaccinations PCP is Rich Connolly MD Pt has walker at home, but doesn't use or need it Pt open to home health referral if needed for cath care ( hopes to learn) Pt declines SNF, DME or acute rehab Pt's will transport home at DC CM will continue to follow Hari Desouza SEX WORKER OR ESCORT NON-EXEMPT - 07/26/2021 13:47 EDT Electronically signed by Paris Sullivan Conversion Diesel Trailer Mechanic Jorge Luisner at 01/11/2023 12:51 AM CDT documented in this encounter Plan of Treatment Not on file documented as of this encounter Visit Diagnoses Not on filedocumented in this encounter
--- OUTSIDE RECORDS SUMMARY | 2025-09-11 11:53 | XMS_ITS | Encounter Summary ---
Author Organization [employer] ([place], [place], [place], [place], [place]) Address [address] [place] [address] Care Team Providers Care Rural Sociologist Name Role Phone Unavailable Primary Care Provider Unavailabl e Encounter Details Date Type Department Care Team (Late st Contact Info) Description 07/25/2021 Transcribed Document [facility] [place] Family Medicine [facility] [place] [address] ProviderRadha MD [facility] [place] [address] Social History Tobacco Use Types Packs/Day Years Used Date Smoking Tobacco: Never Assessed Comments Unknown Sex and Gender Information Value Date Recorded Sex Assigned at Unknown 03/21/2022 8:54 PM CDT Legal Sex Male 8:54 PM CDT Gender Identity Not on file Sexual Orientation Not on file documented as of this encounter Miscellaneous Notes * Cerner Conversion Note - Radha ProviderMD - 07/25/2021 7:27 AM CDT Peripheral Nerve Block Entered On: 07/25/2021 7:28 EDT Performed On: 07/25/2021 7:27 EDT by Cathy Feng Rn Peripheral Nerve Block Peripheral Nerve Block Start Date/Time : 07/25/2021 7:15 EDT Verbally Confirm Pt, Site, and Procedure : Yes Time Out Pause Time : 07/25/2021 7:14 EDT Site Marked and Visible : Yes Site Preparation : 2 minute scrub plus 1 minute dry time Peripheral Nerve Block : Tap Block Laterality : Bilateral Peripheral Nerve Block Performed by : GEORGIA TYSON MD-ANS Medication Delivery Method : Single Shot Peripheral Nerve Block Assisted by : Cathy Feng Rn Ultra sound used during insertion : Yes Nerve Block Activity, Patient Tolerance : Good Peripheral Nerve Block End Date/Time : 07/25/2021 7:19 EDT Jung, Diana Morgan - 07/25/2021 7:27 EDT Electronically signed by Paris Sullivan Conversion Cardiopulmonary Technician And Eeg Tech Cerner at 01/11/2023 12:37 AM CDT documented in this encounter Plan of Treatment Not on file documented as of this encounter Visit Diagnoses Not on filedocumented in this encounter
--- OUTSIDE RECORDS SUMMARY | 2025-09-11 11:53 | XMS_ITS | Encounter Summary ---
Author Organization [employer] ([place], [place], [place], [place], [place]) Address [address] [place] [address] Care Team Providers Care Disaster Recovery Manager Name Role Phone Unavailable Primary Care Provider Unavailabl e Encounter Details Date Type Department Care Team (Late st Contact Info) Description 07/27/2021 Transcribed Document [facility] [place] Family Medicine [facility] [address] ProviderRadha MD [address] [place] [address] Social History Tobacco Use Types Packs/Day Years Used Date Smoking Tobacco: Never Assessed Comments Unknown Sex and Gender Information Value Date Recorded Sex Assigned at Unknown 03/21/2022 8:54 PM CDT Legal Sex Male 8:54 PM CDT Gender Identity Not on file Sexual Orientation Not on file documented as of this encounter Miscellaneous Notes * Cerner Conversion Note - Radha ProviderMD - 07/27/2021 5:00 AM CDT Chart Check - Review Order Profile Entered On: 07/27/2021 5:39 EDT Performed On: 07/27/2021 5:00 EDT by Fiorella Mart RN Chart Check Powerplans Initiated/Discontinued as Appropriate : Yes All Active Orders Reviewed : Yes Fiorella Mart RN - 07/27/2021 5:39 EDT documented in this encounter Plan of Treatment Not on file documented as of this encounter Visit Diagnoses Not on filedocumented in this encounter
--- OUTSIDE RECORDS SUMMARY | 2025-09-11 11:53 | XMS_ITS | Encounter Summary ---
Author Organization [employer] ([place], [place], [place], [place], [place]) Address [address] [place] [address] Care Team Providers Care Irrigation Foreman Name Role Phone Unavailable Primary Care Provider Unavailabl e Encounter Details Date Type Department Care Team (Late st Contact Info) Description 07/28/2021 Transcribed Document [facility] [place] [facility] [place] [address] ProviderRadha MD [address] [place] [address] Social History Tobacco Use Types [...] Conversion Note - Radha ProviderMD - 07/28/2021 9:57 AM CDT Patient Education Materials Follows: Ileus Ileus is a condition that happens when the intestines, which are also called bowels, stop working correctly. The intestines are hollow organs that digest food after the food leaves the stomach. These organs are long, muscular tubes that connect the stomach to the rectum. When ileus occurs, the muscular contractions that cause food to move through the intestines do not happen as they normally would. If the intestines stop working, food cannot pass through to get digested. This condition is a serious problem that usually requires hospitalization. It can cause symptoms such as nausea, abdominal pain, and bloating. Ileus can last from a few hours to a few days. What are the causes? This condition may be caused by: ??? Surgery on the abdomen. ??? An infection or inflammation in the abdomen. This includes inflammation of the lining of the abdomen (peritonitis). ??? Infection or inflammation in other parts of the body, such as pneumonia or pancreatitis. ??? Passage of gallstones or kidney stones. ??? Damage to the nerves or blood vessels that go to the intestines. ??? A collection of blood within the abdominal cavity. ??? Imbalance in the salts in the blood (electrolytes). ??? Injury to the brain or spinal cord. ??? Medicines. Many medicines, including strong pain medicines, can cause ileus or make it worse. If the intestines stop working because of a blockage, that is a different condition that is called a bowel obstruction. What are the signs or symptoms? Symptoms of this condition include: ??? Bloating of the abdomen. ??? Pain or discomfort in the abdomen. ??? Poor appetite. ??? Nausea and vomiting. ??? Lack of normal bowel sounds, such as growling in the stomach. How is this diagnosed? This condition may be diagnosed with: ??? A physical exam and medical history. ??? X-rays or a CT scan of the abdomen. You may also have other tests to help find the cause of the condition. How is this treated? This condition may be treated by: ??? Resting the intestines until they start to work again. This is often done by: ? Stopping oral intake of food and drink. You will be given fluid through an IV to prevent dehydration. ? Placing a small tube (nasogastric tube or NG tube) that is passed through your nose and into your stomach. The tube is attached to a suction device and keeps the stomach emptied out. This allows the bowels to rest and helps to reduce nausea and vomiting. ??? Correcting any electrolyte imbalance by giving supplements in the IV fluid. ??? Stopping any medicines that might make ileus worse. ??? Treating any condition that may have caused ileus. Follow these instructions at home: Eating and drinking ??? Follow instructions from your health care provider about: ? What to eat and drink. You may be told to start eating a bland diet. Over time, you may slowly resume a more normal, healthy diet. ? How much to eat and drink. You should eat small meals often and stop eating when you feel full. ??? Avoid alcohol. General instructions ??? Take yicx-smn-jkulzce and prescription medicines only as told by your health care provider. ??? Rest as told by your health care provider. ??? Avoid sitting for a long time without moving. Get up to take short walks every 1?2 hours. Ask for help if you feel weak or unsteady. ??? Keep all follow-up visits as told by your health care provider. This is important. Contact a health care provider if: ??? You have nausea, vomiting, or abdominal discomfort. ??? You have a fever. Get help right away if: ??? You have severe abdominal pain or bloating. ??? You cannot eat or drink without vomiting. Summary ??? Ileus is a condition that happens when the intestines, which are also called bowels, stop working correctly. ??? When ileus occurs, the muscular contractions that cause food to move through the intestines do not happen as they normally would. ??? Ileus can cause symptoms such as nausea, abdominal pain, and bloating. ??? Treatment may involve getting IV fluids and having a nasogastric tube placed to keep your stomach emptied out until the intestines start working again. This information is not intended to replace advice given to you by your health care provider. Make sure you discuss any questions you have with your health care provider. Document Revised: 01/06/2019 Document Reviewed: 01/06/2019 [employer] Patient Education ? 2020 [employer]. Oncology Prostate Cancer The prostate is a small gland (1.5 inches [3.8 cm] wide and 1 inch [2.5 cm] high) that is involved in the production of semen. It is located below a man's bladder, in front of the rectum. Prostate cancer is the abnormal growth of cells in the prostate gland. What are the causes? The exact cause of this condition is not known. What increases the risk? You are more likely to develop this condition if: ??? You are 65 years of age or older. ??? You are . ??? You have a family history of prostate cancer. ??? You have a family history of breast cancer. What are the signs or symptoms? Symptoms of this condition include: ??? A need to urinate often. ??? Weak or interrupted flow of urine. ??? Trouble starting or stopping urination. ??? Inability to urinate. ??? Blood in urine or semen. ??? Persistent pain or discomfort in the lower back, lower abdomen, hips, or upper thighs. ??? Trouble getting an erection. ??? Trouble emptying the bladder all the way. How is this diagnosed? This condition can be diagnosed with: ??? A digital rectal exam. For this exam, a health care provider inserts a gloved finger into the rectum to feel the prostate gland. ??? A blood test called a prostate-specific antigen (PSA) test. ??? A procedure in which a sample of tissue is taken from the prostate and checked under a microscope (prostate biopsy). ??? An imaging test called transrectal ultrasonography. Once the condition is diagnosed, tests will be done to determine how far the cancer has spread. This is called staging the cancer. Staging may involve imaging tests, such as: ??? A bone scan. ??? A CT scan. ??? A PET scan. ??? An MRI. The stages of prostate cancer are as follows: ??? Stage I. At this stage, the cancer is found in the prostate only. The cancer is not visible on imaging tests, and it is usually found by accident, such as during prostate surgery. ??? Stage II. At this stage, the cancer is more advanced than it is in stage I, but the cancer has not spread outside the prostate. ??? Stage III. At this stage, the cancer has spread beyond the outer layer of the prostate to nearby tissues. The cancer may be found in the seminal vesicles, which are near the bladder and the prostate. ??? Stage IV. At this stage, the cancer has spread to other parts of the body, such as the lymph nodes, bones, bladder, rectum, liver, or lungs. How is this treated? Treatment for this condition depends on several factors, including the stage of the cancer, your age, personal preferences, and your overall health. Talk with your health care provider about treatment options that are recommended for you. Common treatments include: ??? Observation for early stage prostate cancer (active surveillance). This involves having exams, blood tests, and in some cases, more biopsies. For some men, this is the only treatment needed. ??? Surgery. Types of surgeries include: ? Open surgery (prostatectomy). In this surgery, a larger incision is made to remove the prostate. ? A laparoscopic prostatectomy. This is a surgery to remove the prostate and lymph nodes through several, small incisions. It is often referred to as a minimally invasive surgery. ? A robotic prostatectomy. This is laparoscopic surgery to remove the prostate and lymph nodes with the help of robotic arms that are controlled by the surgeon. ? Orchiectomy. This is surgery to remove the testicles. ? Cryosurgery. This is surgery to freeze and destroy cancer cells. ??? Radiation treatment. Types of radiation treatment include: ? External beam radiation. This type aims beams of radiation from outside the body at the prostate to destroy cancerous cells. ? Brachytherapy. This type uses radioactive needles, seeds, wires, or tubes that are implanted into the prostate gland. Like external beam radiation, brachytherapy destroys cancerous cells. An advantage is that this type of radiation limits the damage to surrounding tissue and has fewer side effects. ??? High-intensity, focused ultrasonography. This treatment destroys cancer cells by delivering high-energy ultrasound waves to the cancerous cells. ??? Chemotherapy medicines. This treatment kills cancer cells or stops them from multiplying. It kills both cancer cells and normal cells. ??? Targeted therapy. This treatment uses medicines to kill cancer cells without damaging normal cells. ??? Hormone treatment. This treatment involves taking medicines that act on one of the male hormones (testosterone): ? By stopping your body from producing testosterone. ? By blocking testosterone from reaching cancer cells. Follow these instructions at home: ??? Take mzxw-ofm-fwkfnvb and prescription medicines only as told by your health care provider. ??? Maintain a healthy diet. ??? Get plenty of sleep. ??? Consider joining a support group for men who have prostate cancer. Meeting with a support group may help you learn to manage the stress of having cancer. ??? If you have to go to the hospital, notify your cancer specialist (oncologist). ??? Treatment for prostate cancer may affect sexual function. Continue to have intimate moments with your partner. This may include touching, holding, hugging, and caressing. ??? Keep all follow-up visits as told by your health care provider. This is important. Contact a health care provider if: ??? You have new or increasing trouble urinating. ??? You have new or increasing blood in your urine. ??? You have new or increasing pain in your hips, back, or chest. Get help right away if: ??? You have weakness or numbness in your legs. ??? You cannot control urination or your bowel movements (incontinence). ??? You have chills or a fever. Summary ??? The prostate is a small gland that is involved in the production of semen. It is located below a man's bladder, in front of the rectum. ??? Prostate cancer is the abnormal growth of cells in the prostate gland. ??? Treatment for this condition depends on the stage of the cancer, your age, personal preferences, and your overall health. Talk with your health care provider about treatment options that are recommended for you. ??? Consider joining a support group for men who have prostate cancer. Meeting with a support group may help you learn to cope with the stress of having cancer. This information is not intended to replace advice given to you by your health care provider. Make sure you discuss any questions you have with your health care provider. Document Revised: 08/24/2020 Document Reviewed: 08/24/2020 [employer] Patient Education ? 2020 [employer]. Urology Robot-Assisted Laparoscopic Prostatectomy, Care After This sheet gives you information about how to care for yourself after your procedure. Your health care provider may also give you more specific instructions. If you have problems or questions, contact your health care provider. What can I expect after the procedure? After the procedure, it is common to have: ??? Mild pain in your lower abdomen. ??? Blood in your urine for up to 3 weeks. ??? A need to urinate more often than usual (bladder spasms). This may last for up to 2 weeks. After your long, thin, flexible tube (catheter) is removed, it is common to have: ??? A burning sensation when you urinate. This may last for up to 2 weeks after your catheter is removed. ??? Trouble controlling when you urinate (incontinence). You may leak urine at times. Your ability to control when you urinate will improve as you continue to heal. Follow these instructions at home: Medicines ??? Take bupv-pux-fgzvoqh and prescription medicines only as told by your health care provider. These include any stool softeners. ??? If you were prescribed an antibiotic medicine, take it as told by your health care provider. Do not stop using the antibiotic even if you start to feel better. ??? Ask your health care provider if the medicine prescribed to you: ? Requires you to avoid driving or using machinery. ? Can cause constipation. You may need to take these actions to prevent or treat constipation: ? Take xnrc-awd-qbyuauo or prescription medicines. ? Eat foods that are high in fiber, such as beans, whole grains, and fresh fruits and vegetables. ? Limit foods that are high in fat and processed sugars, such as fried or sweet foods. Eating and drinking ??? Follow instructions from your health care provider about eating or drinking restrictions. ??? Drink enough fluid to keep your urine pale yellow. Incision care and drain care ??? Follow instructions from your health care provider about how to take care of your incisions. Make sure you: ? Wash your hands with soap and water for at least 20 seconds before and after you change your bandages (dressings). If soap and water are not available, use hand eight arm operator. ? Change your dressings as told by your health care provider. ? Leave stitches (sutures), skin glue, or adhesive strips in place. These skin closures may need to stay in place for 2 weeks or longer. If adhesive strip edges start to loosen and curl up, you may trim the loose edges. Do not remove adhesive strips completely unless your health care provider tells you to do that. ??? If you have a drain in any incision, follow instructions about how to care for your drain. Do not remove the drain tube or any dressing around the tube opening unless your health care provider approves. ??? Check your incision and drain areas every day for signs of infection. Check for: ? More redness, swelling, or pain. ? Fluid or blood. ? Warmth. ? Pus or a bad smell. Catheter care ??? Always wash your hands with soap and water for at least 20 seconds before and after touching your penis, catheter, and drainage bag. If soap and water are not available, use hand eight arm operator. ??? Empty your drainage bag every 3 hours during the day, or as often as told. ??? Clean the tip of your penis with soap and water two times a day, or as often as told. ??? If you were given ointment to apply to the tip of your penis, follow instructions about how to do this. ??? You will need to visit your health care provider to have your catheter removed. Your catheter may remain in place for up to 3 weeks after your procedure. Managing pain and swelling If directed, put ice on the affected area. To do this: ??? Put ice in a plastic bag. ??? Place a towel between your skin and the bag. ??? Leave the ice on for 20 minutes, 2?3 times a day. Activity ??? Do not lift anything that is heavier than 10 lb (4.5 kg), or the limit that you are told, until your health care provider says that it is safe. ??? Avoid intense physical activity for as long as told by your health care provider. ??? Walk at least once a day. As you start to feel better, you may start to exercise more. Ask your health care provider what exercises are right for you. ??? Return to your normal activities, including driving, as told by your health care provider. Ask your health care provider what activities are safe for you. General instructions ??? Do not take baths, swim, or use a hot tub until your health care provider approves. Ask your health care provider if you may take showers. You may only be allowed to take sponge baths. ??? If your pelvic lymph nodes were removed for testing, it is up to you to get your test results. Ask your health care provider, or the department that is doing the test, when your results will be ready. ??? Wear compression stockings as told by your health care provider. These stockings help to prevent blood clots and reduce swelling in your legs. ??? Follow instructions from your health care provider about when it is safe for you to engage in sexual activity. ??? Do not strain to have a bowel movement. ??? Do not use any products that contain nicotine or tobacco, such as cigarettes, e-cigarettes, and chewing tobacco. These can delay healing after surgery. If you need help quitting, ask your health care provider. ??? Keep all follow-up visits as told by your health care provider. This is important. Contact a health care provider if: ??? You have problems with your catheter. ??? You have bladder spasms more than 3 or 4 times a day. ??? You become constipated. You may have: ? Trouble having a bowel movement. ? Stools that are hard, dry, or larger than normal. ??? You have any of these signs of infection around any incision area, any drain area, or your insertion site: ? More redness, swelling, or pain. ? Fluid or blood. ? Warmth. ? Pus or a bad smell. ??? You have a fever. ??? You have pain that gets worse. Get help right away if: ??? Your catheter falls out. ??? You cannot urinate or pass urine through your catheter. ??? You have more bright red blood in your urine 3 weeks or more after your procedure. ??? You have blood clots in your urine. ??? You develop: ? Chest pains. ? Shortness of breath. ? Swelling or pain in your legs. These symptoms may represent a serious problem that is an emergency. Do not wait to see if the symptoms will go away. Get medical help right away. Call your local emergency services (911 in the [place] Do not drive yourself to the hospital. Summary ??? After your procedure, it is common to have mild pain, blood in your urine for up to 3 weeks, and a need to urinate more often. ??? Follow instructions from your health care provider about how to take care of your incisions. ??? If your pelvic lymph nodes were removed for testing, it is up to you to get your test results. Ask your health care provider, or the department that is doing the test, when your results will be ready. ??? Keep all follow-up visits as told by your health care provider. This is important. This information is not intended to replace advice given to you by your health care provider. Make sure you discuss any questions you have with your health care provider. Document Revised: 07/15/2020 Document Reviewed: 07/15/2020 [employer] Patient Education ? 2020 [employer] documented in this encounter Plan of Treatment Not on file documented as of this encounter Visit Diagnoses Not on filedocumented in this encounter
--- OUTSIDE RECORDS SUMMARY | 2025-09-11 11:53 | XMS_ITS | Referral Summary ---
Author Organization [employer] ([place], [place], [place], [place], [place]) Address [address] [place] [address] Care Team Providers Care Upsetter Name Role Phone Unavailable Primary Care Provider Unavailabl e Social History Tobacco Use Types Packs/Day Years Used Date Smoking Tobacco: Never Assessed Comments Unknown Sex and Gender Information Value Date Recorded Sex Assigned at Unknown 03/21/2022 8:54 PM CDT Legal Sex Male 8:54 PM CDT Gender Identity Not on file Sexual Orientation Not on file Plan of Treatment Not on file
--- OUTSIDE RECORDS SUMMARY | 2025-09-11 11:53 | XMS_ITS | Encounter Summary ---
Author Organization [employer] ([place], [place], [place], [place], [place]) Address [address] [place] [address] Care Team Providers Care Airport Electrician Name Role Phone Unavailable Primary Care Provider Unavailabl e Encounter Details Date Type Department Care Team (Late st Contact Info) Description 07/27/2021 Transcribed Document [facility] [place] [facility] [place] [address] ProviderRadha MD [address] [place] [address] Social History Tobacco Use Types Packs/Day Years Used Date Smoking Tobacco: Never Assessed Comments Unknown Sex and Gender Information Value Date Recorded Sex Assigned at Unknown 03/21/2022 8:54 PM CDT Legal Sex Male 8:54 PM CDT Gender Identity Not on file Sexual Orientation Not on file documented as of this encounter Miscellaneous Notes * Cerner Conversion Note - Historical ProviderMD - 07/27/2021 5:00 PM CDT Chart Check - Review Order Profile Entered On: 07/27/2021 16:13 EDT Performed On: 07/27/2021 17:00 EDT by Karolina Daly RN Chart Check Powerplans Initiated/Discontinued as Appropriate : Yes All Active Orders Reviewed : Yes Karolina Daly RN - 07/27/2021 16:13 EDT Electronically signed by Paris Sullivan Conversion Hand Expansion Envelope Maker Kalina at 01/11/2023 12:48 AM CDT documented in this encounter Plan of Treatment Not on file documented as of this encounter Visit Diagnoses Not on filedocumented in this encounter
--- OUTSIDE RECORDS SUMMARY | 2025-09-11 11:53 | XMS_ITS | Encounter Summary ---
Author Organization [employer] ([place], [place], [place], [place], [place]) Address [address] [place] [address] Care Team Providers Care Draw In Hand Name Role Phone Unavailable Primary Care Provider Unavailabl e Encounter Details Date Type Department Care Team (Late st Contact Info) Description 07/25/2021 Transcribed Document [facility] [place] [facility] [place] [address] ProviderRadha MD [address] [place] [address] Social History Tobacco Use Types Packs/Day Years Used Date Smoking Tobacco: Never Assessed Comments Unknown Sex and Gender Information Value Date Recorded Sex Assigned at Unknown 03/21/2022 8:54 PM CDT Legal Sex Male 8:54 PM CDT Gender Identity Not on file Sexual Orientation Not on file documented as of this encounter Miscellaneous Notes * Cerner Conversion Note - Radha Hess MD - 07/25/2021 10:49 AM CDT Patient: ROBBY MACEDO Age: 71 Years Sex: Male : 1950 *Operation Prostatectomy Radical Robotic, Lymph Node Biopsy, Anesthesia Type General TONIO GREENBERG MD-ANS (Anesthesiologist of Record) General TONIO GREENBERG MD-ANS (Anesthesiologist of Record) Indication for Surgery Prostate Cancer *Preoperative Diagnosis PROSTATE CANCER *Postoperative Diagnosis SEE DOCTOR POST OPERATIVE NOTE *Surgeon(s) Primary Surgeon KOMAL CORNEJO MD (Surgeon/Proceduralist, First) *Estimated Blood Loss 50 ml *Findings No obvious extraprostatic disease *Specimen(s) Prostate/SVs, bilateral pelvic lymph nodes Complications None Date of Service Date/Time of Service SN - Proc - Start Time: 07/25/21 08:12:00 (07/25/21 08:46:37) SN - Proc - Start Time: 07/25/21 08:12:00 (07/25/21 08:46:37) documented in this encounter Plan of Treatment Not on file documented as of this encounter Visit Diagnoses Not on filedocumented in this encounter
--- OUTSIDE RECORDS SUMMARY | 2025-09-11 11:53 | XMS_ITS | Encounter Summary ---
Author Organization [employer] ([place], [place], [place], [place], [place]) Address [address] [place] [address] Care Team Providers Care Best Second Jobs Name Role Phone Unavailable Primary Care Provider Unavailabl e Encounter Details Date Type Department Care Team (Late st Contact Info) Description 07/28/2021 Transcribed Document [facility] [place] Family Medicine Formerly [facility] [place] [address] ProviderRadha MD [address] [place] [address] Social History Tobacco Use Types [...] Conversion Note - Radha ProviderMD - 07/28/2021 4:30 PM CDT Final Discharge Planning Entered On: 07/28/2021 16:31 EDT Performed On: 07/28/2021 16:30 EDT by Hari Desouza, COMMISSARY AGENT NON-EXEMPT Final Discharge Planning Discharge Arrangements : Patient Post-Acute Information Patient Name: ROBBY MACEDO Gender: Male : [birth year] Age: 71 Years No Post-Acute Placement(s) Listed No Post-Acute Service(s) Listed No [place] Referral(s) Listed Patient Offered Choice/Affiliations Explained : Yes Designation of Choice Signed : Yes Important Medicare Message Reviewed With : Patient Important Medicare Message Reviewed D/T : 07/28/2021 12:00 EDT Transportation Needs : Family/Friend Discharge Transportation Arrangement Cmt : Family Follow Up Appointment Scheduled : Yes Is Patient High/Moderate Readmission Risk? : No Patient/Family Notified of Plan : Yes Support Person/Pt Rep Notified of Plan : Yes Patient/Family Notified : Yes Is Patient Ready for Discharge? : Yes Physician Notified Patient is Ready for Discharge? : Yes Discharge To Care Management : Home/Residential/Intermediate or Self Care - Hari Desouza, COMMISSARY AGENT NON-EXEMPT - 07/28/2021 16:30 EDT Final Narrative Note Final Narrative Note : Day 4 of 1 ELOS Low readmission risk DC order Pt declines DME or HH DC plan home with family support to transport CM has cleared for DC Hari Desouza COMMISSARY AGENT NON-EXEMPT - 07/28/2021 16:30 EDT documented in this encounter Plan of Treatment Not on file documented as of this encounter Visit Diagnoses Not on filedocumented in this encounter
--- OUTSIDE RECORDS SUMMARY | 2025-09-11 11:53 | XMS_ITS | Clinical Summary ---
Author Organization [facility] Address [address] [place] [address] Care Team Providers Care Dog Handler Name Role Phone Gideon Parsons MD Primary Care Provider + [phone] Allergies Active Allergy Reactions Criticality Noted Date Comments Ciprofloxacin Hives 09/02/2025 Penicillins Itching 07/28/2025 Montelukast Itching 07/28/2025 Medications lisinopril (PRINIVIL,ZEST RIL) 10 MG tablet Take 1 tablet by mouth Daily. 2 Active oxybutynin XL (DITROPAN-XL) 5 MG 24 hr tablet Take 1 tablet by mouth Daily. 5 Active metoprolol tartrate (LOPRESSOR) 25 MG tablet Take 1 tablet by mouth 2 (Two) Times a Day. 60 tablet 5 Active Mirabegron ER (Myrbetriq) 50 MG tablet sustained-rele ase 24 hour 24 hr tablet Take 50 mg by mouth Daily. 5 Active ipratropium (ATROVENT) 0.06 % nasal spray Administer 2 sprays into the nostril(s) as directed by provider 2 (Two) Times a Day. Active mometasone (NASONEX) 50 MCG/ACT nasal spray Administer 2 sprays into the nostril(s) as directed by provider Daily. 09/02/20 25 Discontinu ed(*Therap y completed) Active Problems Problem Noted Date Diagnosed Date V-tach 09/02/2025 Holter monitor, abnormal 09/02/2025 Abnormal stress test 09/02/2025 Bradycardia 07/30/2025 Premature ventricular contractions (PVCs) (VPCs) 07/30/2025 Snoring 07/30/2025 Overweight (BMI 25.0-29.9) 07/30/2025 Abnormal EKG 07/30/2025 Palpitations 07/30/2025 Hypertension Colon polyps Resolved Problems Problem Noted Date Diagnosed Date Resolved Date Prostate cancer 07/25/2022 07/30/2025 Kidney stones 07/30/2025 Encounters Date Type Department Care Team Description 09/07/2025 Telephone [facility] [place] [phone] Anyi Palafox APRN [place] - CATH 09/02/2025 2:15 PM EST Office Visit [facility] [place] [phone] Anyi Palafox APRN V-tach; Holter monitor, abnormal; Abnormal stress test 09/02/2025 Travel 08/12/2025 10:30 AM EST Ancillary Procedure [facility] [place] [phone] Premature ventricular contractions (PVCs) (VPCs); Abnormal EKG 08/12/2025 Results Follow-Up [facility] [place] [phone] Anyi Palafox APRN 08/12/2025 Travel 07/28/2025 2:55 PM EST Ancillary Procedure [facility] [place] [phone] Premature ventricular contractions (PVCs) (VPCs); Abnormal EKG 07/28/2025 11:00 AM EST Office Visit [facility] [place] [phone] Anyi Palafox APRN Abnormal EKG; Premature ventricular contractions (PVCs) (VPCs); Palpitations; Bradycardia; Primary hypertension; Snoring; Overweight (BMI 25.0-29.9) 07/28/2025 Patient rounding ([facility] only) [facility] [place] [address] Anyi Palafox APRN 07/28/2025 Travel from Last 3 Months Immunizations Immunization Administration Dates Next Due COVID-19 (PFIZER) Purple Cap Monovalent 11/11/19 21,10/21/2020 Family History Medical History Relation Name Comments Dementia Father Diabetes Father Stroke Mother Relation Name Status Comments Father Mother Social History Tobacco Use Types Packs/Day Years [...] Orientation Straight 07/21/2025 10 :52 AM EDT Last Filed Vital Signs Vital Sign Reading Time Taken Comments Blood Pressure 130/70 09/02/2025 1:56 PM EST Pulse 70 09/02/2025 1:56 PM EST Temperature - - Respiratory Rate - - Oxygen Saturation 98% 09/02/2025 1:56 PM EST Inhaled Oxygen Concentration - - Weight 104 kg (230 lb) 08/12/2025 10:45 AM EST Height 193 cm (6' 3.98 ) 09/02/2025 1:56 PM EST Body Mass Index 28 08/12/2025 10:45 AM EST Plan of Treatment Scheduled Procedures Name Priority Associated Diagnoses Date/Ti me Left Heart Cath w/ Grafts and Coronaries Abnormal stress test LEFT HEART CATH w/cors Abnormal stress test Health Maintenance Due Date Last Done Comments ZOSTER VACCINE (2 of 3) 05/27/2013 04/01/2013 TDAP/TD VACCINES (2 - Td or Tdap) 11/16/2021 012 RSV Vaccine - Adults (1 - 1- dose 75+ series) 2023 ANNUAL WELLNESS VISIT 07/28/2025 HEPATITIS C SCREENING 07/28/2025 COVID-19 Vaccine (2024- season) 2025 07/09/2025, 03/31/2025, 05/24/2024, Additional history exists Pneumococcal Vaccine 50+ Completed 12/26/2016, 07/26 INFLUENZA VACCINE Completed 07/09/2025, , 07/25/2019, Additional history exists Procedures Procedure Name Priority Date/Time Associated Diagnosis Comments SE QUAD ONLY W/ EXERCISE Routine 08/12/2025 11:23 AM EST Premature ventricular contractions (PVCs) (VPCs) Abnormal EKG HOLTER MONITOR >7DAYS UP TO 15 DAYS ([id number]) Routine 07/28/2025 2:54 PM EST Premature ventricular contractions (PVCs) (VPCs) Abnormal EKG ECG 12-LEAD Routine 07/28/2025 12:39 PM EST Premature ventricular contractions (PVCs) (VPCs) from Last 3 Months Results * SE QUAD ONLY W/ EXERCISE [...] Arrhythmias were not significant during recovery. Test Transmission Tester ECG [place] Scoring Score Index: 1.18 The following segments are hypokinetic: mid anterior, mid anteroseptal and apical anterior. All other segments are normal. Anyi Palafox MELI CV ECHO ORDERABLES Final Result * HOLTER MONITOR >7DAYS UP TO 15 DAYS ([id number]) (07/28/2025 2:54 PM EST) Heart rate (average) [...] include dizziness and ABNORMAL EKG. Total beats: [id number]. Average HR: 75. Min HR: 51. 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 No associatedsymptoms (SOB, dizziness, chest pain, swelling). Functional capacityunchanged. Under PCP care for 1 year. Previous physical exam and EKGnormal. Sonogram normal. No stress test done. Active lifestyle, regulartreadmill use. Daily caffeine intake: 1 cup of coffee. No tea. 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 Plays basketball, frequenttreadmill use at gym. 1 cup of coffee daily in the morning. Phoenix Scale is (out of 24): Total score: [...] Return for After testing. Patient or patient telephone service representative verbalized consent for the use [...] ORDERABLES Sina mar Result - Final ECG from Last 3 Months Insurance [employer] MEDICARE ADVANTAGE [facility] MEDICARE ADVANTAGE HMO Care Teams Dog Handler Relationship Specialty Start Date End Date Gideon Parsons MD [address] [facility] [address] [place] [id number] PCP - General Adolescent Medicine 07/28/25
--- OUTSIDE RECORDS SUMMARY | 2025-09-11 11:53 | XMS_ITS | Encounter Summary ---
Author Organization [employer] ([place], [place], [place], [place], [place]) Address [address] [place] [address] Care Team Providers Care Landscaping Manager Name Role Phone Unavailable Primary Care Provider Unavailabl e Encounter Details Date Type Department Care Team (Late st Contact Info) Description 07/25/[address] [facility] [place] Family Medicine [facility] [place] [address] ProviderRadha MD [address] [place] [address] Social History Tobacco Use Types [...] Note - Radha Hess MD - 07/25/2021 8:12 AM CDT [facility] Main OR PACU Summary Primary Physician: KOMAL CORNEJO MD Finalized Date/Time: 07/25/21 19:49:14 Pt. Name: LOGANROBBY/Sex: 1950 Male Med Rec #: [id number] Physician: KOMAL CORNEJO MD Financial #: [id number] Pt. Type: I Room/Bed: [facility]/ Admit/Disch: 07/25/21 06:45:00 - Institution: [facility] Main OR PACU I Case Times Entry 1 In PACU I 07/25/21 10:44:00 Ready for PACU 07/25/21 12:20:00 Discharge Discharge from PACU 07/25/21 13:20:00 I Last Modified By: DORIE OCASIO RN 07/25/21 19:48:40 [facility] Main OR PACU I Case Times Audit 07/25/21 19:48:40 Income Tax Advisor: SRIDHAR Modifier: BRANDEP <+> 1 Ready for PACU Discharge <+> 1 Discharge from PACU I [facility] Main OR PACU Acuity Entry 1 Start Time 07/25/21 12:20:00 Stop Time 07/25/21 13:20:00 Acuity Level [facility] PACU Acuity I Last Modified By: DORIE OCASIO RN 07/25/21 19:49:10 Finalized By: DORIE OCASIO, RN Document Signatures Signed By: DORIE OCASIO RN 07/25/21 19:49 Electronically signed by [facility] Conversion Psychological Anthropologist Cerner at 01/11/2023 12:43 AM CDT documented in this encounter Plan of Treatment Not on file documented as of this encounter Visit Diagnoses Not on filedocumented in this encounter
--- OUTSIDE RECORDS SUMMARY | 2025-09-11 11:53 | XMS_ITS | Encounter Summary ---
Author Organization [employer] ([place], [place], [place], [place], [place]) Address [address] [place] [address] Care Team Providers Care Photo Technologist Name Role Phone Unavailable Primary Care Provider Unavailabl e Encounter Details Date Type Department Care Team (Late st Contact Info) Description 07/25/2021 Transcribed Document [facility] Family Medicine [facility] [place] [address] ProviderRadha MD [address] [place] [address] Social History Tobacco Use Types [...] Hess MD - 07/25/2021 8:12 AM CDT [facility] Main OR IntraOp Summary Primary Physician: KOMAL CORNEJO MD Finalized Date/Time: 07/26/21 15:04:38 Pt. Name: ROBBY FORD SOMMER /Sex: 1950 Male Med Rec #: [id number] Physician: KOMAL CORNEJO MD Financial #: [id number] Pt. Type: I Room/Bed: [facility]/ Admit/Disch: 07/25/21 06:45:00 - Institution: [facility] IntraOp Case Attendance Entry 1 Entry 2 Entry 3 Case Attendee KOMAL CORNEJO MD NALLY, RENAE D, TONIO PENA MD-ANS Role Performed Surgeon/Proceduralist, CONVERTIBLE POWER SHOVEL OPERATOR/Nurse Seed Cleaning Manager Anesthesiologist of First Record Time In 07/25/21 07:41:00 07/25/21 07:41:00 07/25/21 07:41:00 Time Out 07/25/21 10:42:00 07/25/21 10:42:00 07/25/21 10:42:00 Procedure Prostatectomy Radical Prostatectomy Radical Prostatectomy Radical Robotic, Lymph Node Robotic, Lymph Node Robotic, Lymph Node Biopsy Biopsy Biopsy Other Attendee Superficial Wound Closed By: Last Modified By: Candice Valle, RN Candice Valle, RN Candice Valle, RN 07/25/21 10:44:19 07/25/21 10:44:19 07/25/21 10:44:19 Entry 4 Entry 5 Entry 6 Case Attendee EMILI MONTERO, Candice Kaur, RN Pravin Christian, Diesel Engineer Role Performed Cane Burner, First Logistics Coordinator, First Scrub, First Time In 07/25/21 07:41:00 07/25/21 07:41:00 07/25/21 07:41:00 Time Out 07/25/21 10:42:00 07/25/21 10:42:00 07/25/21 10:42:00 Procedure Prostatectomy Radical Prostatectomy Radical Prostatectomy Radical Robotic, Lymph Node Robotic, Lymph Node Robotic, Lymph Node Biopsy Biopsy Biopsy Other Attendee Superficial Wound Closed By: Last Modified By: Candice Valle, RN Candice Valle, RN Candice Valle, SCOTTIE 07/25/21 10:44:19 07/25/21 10:44:19 07/25/21 10:44:19 Entry 7 Entry 8 Entry 9 Case Attendee Driss Nguyen, ALMAS WHITAKER Kesten, Robert I, RN SPECIALTY CARE STAFF Role Performed Scrub, Second Cruise Staff Member, Ancillary Logistics Coordinator, First Time In 07/25/21 07:41:00 07/25/21 07:41:00 07/25/21 09:20:00 Time Out 07/25/21 10:42:00 07/25/21 10:42:00 07/25/21 09:35:00 Procedure Prostatectomy Radical Prostatectomy Radical Prostatectomy Radical Robotic, Lymph Node Robotic, Lymph Node Robotic Biopsy Biopsy Other Attendee RN break relief Superficial Wound Closed By: Last Modified By: Candice Valle, Candice Anna, Candice Anna RN 07/25/21 10:44:19 07/25/21 10:44:19 07/25/21 09:54:12 [facility] IntraOp Case Attendance Audit 07/25/21 10:47:13 Tinsmith Helper: IVANA Modifier: SMITHPD <+> 9 Procedure 07/25/21 10:44:19 Tinsmith Helper: IVANA Modifier: SMITHPD 1 <+> Time Out 1 <*> Procedure Prostatectomy Radical Robotic, Lymph Node Biopsy 2 <+> Time Out 2 <*> Procedure Prostatectomy Radical Robotic, Lymph Node Biopsy 3 <+> Time Out 3 <*> Procedure Prostatectomy Radical Robotic, Lymph Node Biopsy 4 <+> Time Out 4 <*> Procedure Prostatectomy Radical Robotic, Lymph Node Biopsy 5 <+> Time Out 5 <*> Procedure Prostatectomy Radical Robotic, Lymph Node Biopsy 6 <+> Time Out 6 <*> Procedure Prostatectomy Radical Robotic, Lymph Node Biopsy 7 <+> Time Out 7 <*> Procedure Prostatectomy Radical Robotic, Lymph Node Biopsy 8 <+> Time Out 8 <*> Procedure Prostatectomy Radical Robotic, Lymph Node Biopsy 07/25/21 09:54:12 Tinsmith Helper: IVANA Modifier: SMITHPD <+> 9 Case Attendee <+> 9 Role Performed <+> 9 Time In <+> 9 Time Out <+> 9 Other Attendee 07/25/21 09:25:03 Tinsmith Helper: IVANA Modifier: SMITHPD 1 <*> Procedure Prostatectomy Radical Robotic, Lymph Node Biopsy 2 <+> Time In 2 <*> Procedure Prostatectomy Radical Robotic, Lymph Node Biopsy 3 <+> Time In 3 <*> Procedure Prostatectomy Radical Robotic, Lymph Node Biopsy 4 <+> Time In 4 <*> Procedure Prostatectomy Radical Robotic, Lymph Node Biopsy 5 <+> Time In 5 <*> Procedure Prostatectomy Radical Robotic, Lymph Node Biopsy 6 <+> Time In 6 <*> Procedure Prostatectomy Radical Robotic, Lymph Node Biopsy 7 <+> Time In 7 <*> Procedure Prostatectomy Radical Robotic, Lymph Node Biopsy 8 <+> Time In 8 <*> Procedure Prostatectomy Radical Robotic, Lymph Node Biopsy [facility] IntraOp Case Times Entry 1 Patient In Room Time 07/25/21 07:41:00 Out Room Time 07/25/21 10:42:00 Anesthesia Start Time 07/25/21 07:41:00 Stop Time 07/25/21 10:42:00 Surgery / Procedure Times Start Time 07/25/21 08:12:00 Stop Time 07/25/21 10:34:00 Last Modified By: Candice Valle RN 07/25/21 10:43:22 [facility] IntraOp Case Times Audit 07/25/21 10:43:22 Tinsmith Helper: SMITH Modifier: SMITHPD <+> 1 Out Room Time <+> 1 Stop Time <+> 1 Stop Time [facility] IntraOp Cautery Entry 1 ESU Identification Cautery Type Monopolar ESU ID Number [id number] ID Type Hospital Number Cautery Settings Cut Setting 3 Coag Setting 3 Bipolar Setting 4 ESU Grounding Pad Ground Pad Type Adult Grounding Pad Site Right thigh Grounding Pad Candcie Valle RN Applied By Grounding Pad Site Warm, dry and intact Skin Condition Before Cautery Grounding Pad Site Warm, dry and intact, Skin Condition Unchanged After Cautery Last Modified By: Candice Valle RN 07/25/21 08:38:30 [facility] IntraOp Communication Entry 1 Entry 2 Communication To Family/Significant other Family/Significant other Comment START update Communication By Candice Valle RN Smith, Patsy D, RN Date and Time 07/25/21 08:12:00 07/25/21 09:54:00 Last Modified By: Candice Valle RN Smith, Patsy D, RN 07/25/21 08:53:22 07/25/21 10:23:24 [facility] IntraOp Communication Audit 07/25/21 10:23:24 Tinsmith Helper: SMITH Modifier: SMITHPD <+> 2 Communication By <+> 2 Date and Time <+> 2 Communication To <+> 2 Comment [facility] IntraOp Counts Verification Entry 1 Procedure Prostatectomy Radical Robotic, Lymph Node Biopsy Count Info Count Type Sponge, Sharps, Miscellaneous Counts Verification Baseline/pre-procedure Sequence Count Results Not Applicable Counts Performed By Count Performed By Pravin Christian (Scrub) Diesel Engineer Count Performed By Candice Valle RN (RN) Last Modified By: Candice Valle RN 07/25/21 08:53:42 [facility] IntraOp Counts Final Entry 1 Procedure Prostatectomy Radical Robotic, Lymph Node Biopsy Final Count Info Count Type Sponge, Sharps, Miscellaneous Counts Verification Skin Closure/end of Sequence procedure Count Results Correct, surgeon notified Counts Performed By Count Performed By Pravin Christian, (Scrub) Diesel Engineer Count Performed By Candice Valle RN (RN) Last Modified By: Candice Valle RN 07/25/21 08:53:53 [facility] IntraOp Counts Final Audit 07/25/21 10:23:58 Tinsmith Helper: SMITHPD Modifier: SMITHPD 1 <*> Procedure Prostatectomy Radical Robotic, Lymph Node Biopsy 1 <+> Count Performed By (Scrub) 1 <+> Count Performed By (RN) [facility] IntraOp Cultures and Spec Summary Entry 1 Cultrures and Specimens Specimen Ordered: Yes Test(s) Routine/Path-Lab Requested/Final Disposition Last Modified By: Candice Valle RN 07/25/21 09:01:32 General Comments: SPECIMENS: A. PROSTATE AND SEMINAL VESICLES B. LEFT OBTURATOR LYMPH NODE C. RIGHT OBTURATOR LYMPH NODE [facility] IntraOp Delays Entry 1 Delay Reason Other Duration 11 Minute(s) Comment DOCTOR SIGNING CONSENT TALKING WITH PATIENT, ANESTHESIA DOING BLOCK Last Modified By: Candice Valle RN 07/25/21 08:56:11 [facility] IntraOp Departure from OR Entry 1 Integumentary Assessment Integumentary WDL with patient Assessment WDL specific variances Patient's Normal Surgical incisions = Integumentary abdomen Variance(s) Transfer/Handoff Transfer to PACU Phase I Handoff Method Phone call Handoff Reported to SHAKIRA LIMA RN Post-op Transport Stretcher/Gurney Via Patient Transport EMILI MONTERO CSTFA, Accompanied by DIAMANTE BRYANT NA Last Modified By: Candice Valle RN 07/25/21 10:24:14 [facility] IntraOp Departure from OR Audit 07/25/21 10:24:14 Tinsmith Helper: SMITHPD Modifier: SMITHPD <+> 1 Handoff Reported to [facility] IntraOp Drains and Tubes Entry 1 Device Type Bradley Martinez flat drain Size 10 mm Drain/Tube Activity Inserted Drain/Tube Suction Bulb Drain/Tube Drainage Sanguineous Device Location Operative site Method of Drainage Compression Chest Tubes Other Connectivity Last Modified By: Candice Valle RN 07/25/21 08:58:42 [facility] IntraOp Dressing and Packing Entry 1 Type Dressing Location Abdomen Wound Dressing Item Skin Closure Glue, 4x4's Tape Type Other Applied By EMILI MONTERO CSTFA Other Comments Medipore tape used to secure 4x4 gauze (drain dressing), DERMABOND Last Modified By: Candice Valle RN 07/25/21 08:59:13 [facility] IntraOp Dressing and Packing Audit 07/25/21 08:59:13 Tinsmith Helper: IVANA Modifier: AYESHAPD 1 <*> Other Comments Medipore tape used to secure 4x4 gauze (drain dressing) [facility] IntraOp Fire Risk Assessment Entry 1 Fire Info Surgical Site or 0- No Incision Above the Xyphoid Open O2 Source 0- No (Mask or Cannula) Available Ignition 1- Yes (ESU, Laser, Light Source) Fire Risk 1 Assessment Score Fire Score Fire Risk Yes Assessment Complete Fire Risk Candice Valle RN Assessment Verified By Fire Risk 07/25/21 08:11:00 Assessment Verified Date/Time Fire Risk Standard Fire Yes Safety Precautions Followed Last Modified By: Candice Valle RN 07/25/21 08:58:55 [facility] IntraOp Fire Risk Assessment Audit 07/25/21 08:59:33 Tinsmith Helper: IVANA Modifier: AYESHAPD <+> 1 Fire Risk Assessment Verified Date/Time [facility] IntraOp General Case Wire Fence Builder 1 Case Information OR OR 13 [facility] Case Level 1 Room Verified Yes Wound Class 1 - Clean Specialty Urology Anesthesia Type General ASA Class 2 Diagnosis Preop Diagnosis PROSTATE CANCER Postop Same As Preop No Postop Diagnosis SEE DOCTOR POST OPERATIVE NOTE Wound Class Definitions Last Modified By: Candice Valle RN 07/25/21 09:01:10 [facility] IntraOp General Case Data Audit 07/25/21 09:01:27 Tinsmith Helper: IVANA Modifier: IVANA <+> 1 Postop Diagnosis [facility] IntraOp Intraoperative Assessment Entry 1 Handoff Method Online nursing summary Valid History / Yes Physical in Chart Preoperative Yes Checklist Reviewed/Evaluated Allergies Reviewed Yes Patient is Latex No Sensitive Isolation Not applicable Precautions Noted Level of WDL Consciousness (WDL = Alert, Oriented to Person, Place, and Time) Skin Assessment Yes Verified Present Upon IVs Arrival to OR Last Modified By: Candice Valle RN 07/25/21 09:01:12 [facility] IntraOp Intraoperative Equipment Entry 1 Type Equipment Equipment Equipment orangutrans Suction System ID Number [id number] Intraop Monitoring Electrocardiogram Three lead placement (ECG) Electrode Placement Blood Pressure Non-Invasive BP Device Source Blood Pressure Arm, right upper Location Pulse Oximeter Hand, left Probe Site Antiembolic Devices Antiembolic Devices Sequential compression device, knee high Antiembolic Device Bilateral Location Antiembolic Device [id number] ID Number Scopes Photo/Video Documentation Photo No Video No Intraop Equipment Sequential compression Comment devices on and in operation prior to induction of anesthesia. Last Modified By: Candice Valle RN 07/25/21 08:53:05 [facility] IntraOp Medication Admin Entry 1 Medication/Irrigant LUANN IRR 0.9% NACL 1000ML --[id number] Route of Irrigation Administration Dose Administered By EMILI MONTERO CSTFA Procedure Irrigation Last Modified By: Candice Valle RN 07/25/21 08:52:15 [facility] IntraOp Patient Positioning Entry 1 Procedure Prostatectomy Radical Robotic, Lymph Node Biopsy Body Position Lithotomy Left Arm Position Tucked and padded at side Right Arm Position Tucked and padded at side Left Leg Position Secured in Leg Carvajal Right Leg Position Secured in Leg Carvajal Position Comments Steep Trendelenburg Feet Uncrossed Yes Pressure Points Yes Checked Positioning Devices Head Rest, Pad, Arm, Pad, Arm, Pad, Mattress, Stirrups/Leg Carvajal, Boot, Safety Strap, Chest Positioned By Candice Valle, SCOTTIE, KOMAL CORNEJO MD, DIAMANTE BRYANT, NA, EMILI MONTERO CSTFA Position Verified Positioning Yes Verified by Anesthesia Positioning Yes Verified by Surgeon Last Modified By: Candice Valle RN 07/25/21 08:52:06 [facility] IntraOp Sign In Entry 1 Patient, Site, Yes Procedure Identified Surgical Consent Yes Confirmed Relevant Surgical Yes Documents Available Surgical Site N/A Marked by person performing procedure Anesthesia Machine Yes Check Completed Medication Checks Yes Completed Allergies Yes Airway Difficult Yes Airway/Aspiration Risk Difficult Yes Airway/Aspiration Intervention Equipment Available Blood Loss Risk Yes Blood Loss Yes Intervention Equipment Prepared and Ready Blood Identifiers Not applicable Verified Per Policy Hypothermia Risk Yes Warming Measures Yes Taken Last Modified By: Candice Valle RN 07/25/21 08:51:45 [facility] IntraOp Sign Out Entry 1 RN Confirmation Surgical Yes Procedure(s) Identified Instrument, Sponge Yes and Sharps Counts Correct/Documented Equipment Problems N/A Documented Specimen Labeled Yes Correctly Urinary Catheter Yes Documented in IView Wound Yes classification reviewed, verified and updated post case in both the General Case Data and Procedure segments Guerra Patient Yes Recovery Concerns Reviewed with Anesthesia Provider, Surgeon and RN Guerra Patient Yes Management Concerns Reviewed with Anesthesia Provider, Surgeon and RN Safety Checklist Yes Elements Complete? RN Sign Out Candice Valle RN Signature RN Sign Out 07/25/21 10:42:00 Signature Date/Time Plan of Care Outcome - Fire Risk OUTCOME STATEMENT: Goal met Patient is free from injury related to surgical fire Plan of Care Outcome - Pt Positioning OUTCOME STATEMENT: Goal met Absence of signs and symptoms of positioning injury. Plan of Care Outcome - Skin Prep OUTCOME STATEMENT: Goal met Intraoperative care is consistent with measures to prevent infection Plan of Care Outcome - Xray/Images OUTCOME STATEMENT: N/A Absence of observable signs or symptoms of radiation injury Plan of Care Outcome - Counts OUTCOME STATEMENT: Goal met Absence of signs and symptoms of injury related to extraneous objects Last Modified By: Candice Valle RN 07/25/21 08:51:32 [facility] IntraOp Sign Out Audit 07/25/21 10:44:17 Tinsmith Helper: SMITHPD Modifier: SMITHPD <+> 1 RN Sign Out Signature Date/Time [facility] IntraOp Skin Prep Entry 1 Procedure Prostatectomy Radical Robotic, Lymph Node Biopsy Prescribed N/A Pre-Surgical Prep Completed Prep Area ABDOMEN, GENITALIA Intraop Prep Integumentary WDL Assessment WDL Prep Agents Chloraprep, Betadine scrub, Betadine solution Prep by Candice Valle RN Skin Prep Comment GENITALIA PREPPED WITH BETADINE SCRUB AND SOLUTION Hair Removal Methods Clipper/Scissors Hair Removal Site ABDOMEN Hair Removal By EMILI MONTERO CSTFA Last Modified By: Candice Valle RN 07/25/21 08:46:56 [facility] IntraOp Surgical Procedures Entry 1 Entry 2 Procedure Prostatectomy Radical Lymph Node Biopsy Robotic Modifiers Additional (ROBOTIC PROSTATECTOMY Procedure WITH BILATERAL LYMPH Description NODE DISSECTION) Primary Procedure Yes No Primary Surgeon KOMAL CORNEJO MD JOHNSON, JUSTIN DALE, MD Start 07/25/21 08:12:00 07/25/21 08:12:00 Stop 07/25/21 10:34:00 07/25/21 10:34:00 Physician States Cecum Reached Anesthesia Type General General Specialty Urology Urology Wound Class 1 - Clean 1 - Clean Last Modified By: Candice Valle RN Smith, Patsy D, RN 07/25/21 08:46:37 07/25/21 10:44:04 [facility] IntraOp Surgical Procedures Audit 07/25/21 10:44:04 Tinsmith Helper: AYESHAPD Modifier: SMITHPD 2 <*> Procedure Lymph Node Biopsy 2 <+> Wound Class 07/25/21 10:43:52 Tinsmith Helper: SMITHPD Modifier: SMITHPD 2 <*> Procedure Lymph Node Biopsy 2 <+> Specialty 07/25/21 10:43:23 Tinsmith Helper: SMITHPD Modifier: SMITHPD <+> 1 Stop <+> 2 Stop [facility] IntraOp Temp Regulation Devices Entry 1 Temp Regulation Temperature Warm blankets, Forced Regulation Device Air Warming device, Room temperature Temperature 09777 Regulation Device Serial/Unit Number Temperature Upper body Regulation Site Temperature ANNETTE, DIAMANTE D, NA Regulation Device Applied by Temperature Patient's temperature Regulation Comment and forced air warming device settings monitored by anesthesia provider. Last Modified By: Candice Valle RN 07/25/21 08:38:50 [facility] IntraOP Time Out Entry 1 Procedure to be Prostatectomy Radical Performed Robotic, Lymph Node Biopsy Time Out Time Out Pause Time 07/25/21 08:11:00 All activity Yes suspended (unless life threatening emergency) Team Verbally Correct patient Confirms Information identity, Consent form is present and accurate, Agreement on the procedure to be done, Correct patient position, Confirm antibiotics have been administered, Confirm the skin prep has dried, Performed in location of procedure after prepped/draped, Performed before each procedure if multiple procedures, Reconcile problems if responses among team members differ Antibiotic Yes Prophylaxis Administered Or In Progress Within the Last 60 Minutes Beta Joi N/A Administered Venous Yes Thromboembolism Prophylaxis Required Anticipated Critical Events Surgeon None expected Anesthesia Provider None expected Nursing Assures Sterility of instruments Essential Imaging N/A Labeled and Displayed Last Modified By: Candice Valle RN 07/25/21 08:46:11 Case Comments <None> Finalized By: JORGE CHANEY Document Signatures Signed By: Candice Valle RN 07/25/21 10:47 JORGE CHANEY 07/26/21 15:04 Unfinalized History Date/Time Username Reason for Unfinalizing Freetext Reason for Unfinalizing 07/26/21 15:00 WATTSDR Correct Billing Electronically signed by Laurie [facility] Conversion Peanut Picker Cerner at 01/11/2023 12:30 AM CDT documented in this encounter Plan of Treatment Not on file documented as of this encounter Visit Diagnoses Not on filedocumented in this encounter
--- OUTSIDE RECORDS SUMMARY | 2025-09-11 11:53 | XMS_ITS | Encounter Summary ---
Author Organization [employer] ([place], [place], [place], [place], [place]) Address [address] [place] [address] Care Team Providers Care Service Parts Driver Name Role Phone Unavailable Primary Care Provider Unavailabl e Encounter Details Date Type Department Care Team (Late st Contact Info) Description 07/28/2021 Transcribed Document [facility] [place] Family Medicine [facility] [place] [address] ProviderRadha MD [address] [place] [address] Social History Tobacco Use Types [...] Conversion Note - Radha Hess MD - 07/28/2021 12:14 PM CDT [facility] [place] [id number] ROB[address] MACEDO :1950 Visit Time:07/25/2021 Your Visit Summary Your Care Team Admitting Physician - KOMAL CORNEJO MD Attending Physician - KOMAL CORNEJO MD Primary Care Physician - JOSHUA STOVALL [facility] Referring Physician - KOMAL CORNEJO MD Your Diagnosis Malignant neoplasm of prostate, Malignant neoplasm of prostate These Are Your Goals Patient Discharge Goal Patient Discharge Goal: Home Discharge Vitals Temperature 36.8 ??C Heart Rate (Monitored) 74 Respiratory Rate 18 Blood Pressure 137/79 What to do next Instructions From Your Care Team Discharge Follow Up Instructions: Follow up Dr. Cornejo 1 week, cystogram prior to appt Discharge Activity: No heavy lifting over 10 lbs Discharge Diet: Resume usual diet as tolerated Wound/Incision Care Instructions: Keep operative site/wound clean and dry Showering/Bathing Instructions: May shower Driving Restriction: No driving until 24 hours after taking pain medication Follow-Up Appointments Follow Up with JOSHUA STOVALL [facility] When 08/04/2021 09:00 AM EST Comments Appointment has been made Bring discharge instructions with you Where: [address] [place] [address]- Follow Up with KOMAL CORNEJO MD When 08/03/2021 04:15 PM EST Comments cystogram prior to appointment Appointment has been made Bring discharge instructions with you Where: [address] [place] [address]- Medications What How Much When Instructions Next Dose cholecalciferol (Vitamin D3) 5,000 i units Oral Every Day tomorrow fexofenadine (Zuleika 12 Hour) As needed for for allergies tomorrow guaiFENesin (Mucinex) 600 Milligram(s) Oral Every 12 hours as needed for for allergies as needed lisinopril 10 Milligram(s) Oral Every Day tomorrow loratadine 10 Milligram(s) Oral Every Day tomorrow multivitamin 1 Tablet(s) Oral Every Day Men's formula OTC tomorrow pseudoePHEDrine (Sudafed) Oral Every 6 Hours as needed for for allergy symptoms as needed triamcinolone nasal (Nasacort Allergy 24HR 55 mcg/ inh nasal spray) 2 [place](s) Nasal Every Day tomorrow Take your medications faithfully. Do NOT skip medication. Do NOT stop taking medications without the direction of a physician. Carry a list of your medications with you at all times, and take this medication list with you to your first follow up visit. Report any side effects. Avoid herbal remedies unless discussed with your physician. As part of your treatment plan, your physician may have prescribed a limited course of a controlled substance. This medication may be given to help people with moderate or severe pain or for other medical conditions, but there are risks involved with treatment. Common side effects may include nausea, constipation, drowsiness, sweating, itching, dry mouth, and rash. More serious side effects may include cognitive and motor impairment, like problems with thinking, concentrating, alertness, and movement (e.g. slowed reflexes), and driving and operating heavy machinery can be dangerous. It is important for you to talk to your physician if you have these side effects or questions. These controlled substances can produce physical dependence and be habit-forming if taken for an extended period of time, which means that the body has gotten used to them and may experience withdrawal symptoms if they are abruptly stopped. Withdrawal symptoms can include runny nose, sweating, goose bumps, diarrhea, abdominal cramping, rapid heartbeat, difficulty sleeping, and nervousness. Please dispose of unused and medications per your retail pharmacy guidance. Allergies Singulair (Skin rash) penicillin (Skin rash) Immunizations This Visit SARS-CoV-2 mRNA (tozinameran) vaccine 05/21/2021 SARS-CoV-2 mRNA (tozinameran) vaccine 11/01/2020 SARS-CoV-2 mRNA (tozinameran) vaccine 10/21/2020 Education Materials Ileus Ileus is a condition that happens [...] ??? Avoid alcohol. General instructions ??? Take ugyl-oig-oujvqfz and prescription medicines only as told by your health care provider. ??? Rest as told by your health care provider. ??? Avoid sitting for a long time without moving. Get up to take short walks every 1???2 hours. Ask for help if you feel [...] provider. Document Revised: 01/06/2019 Document Reviewed: 01/06/2019 [employer] Patient Education ?? 2020 [employer]. Prostate Cancer The prostate is a small [...] Follow these instructions at home: ??? Take hvfs-rmc-idbxgyc and prescription medicines only as told by [...] provider. Document Revised: 08/24/2020 Document Reviewed: 08/24/2020 [employer] Patient Education ?? 2020 [employer] Robot-Assisted Laparoscopic Prostatectomy, Care After This sheet [...] these instructions at home: Medicines ??? Take jovg-iwr-asxsucx and prescription medicines only as told by [...] to prevent or treat constipation: ? Take guhn-jqk-cvtmolt or prescription medicines. ? Eat foods that [...] and water are not available, use hand personal service representative. ? Change your dressings as told by [...] and water are not available, use hand personal service representative. ??? Empty your drainage bag every 3 [...] Leave the ice on for 20 minutes, 2???3 times a day. Activity ??? Do not [...] provider. Document Revised: 07/15/2020 Document Reviewed: 07/15/2020 [employer] Patient Education ?? 2020 [employer] Emergency Awareness and Preventative Care STROKE is an EMERGENCY Every Minute Counts Act FAST and Check for these signs: FACE Does the face look uneven? ARM Does one arm drift down? SPEECH Does their speech sound strange? TIME Call at any sign of stroke Stroke Risk Factors Atrial Fibrillation (irregular heartbeat) Diabetes Family history of stroke Heart Disease Heavy alcohol use High Blood Pressure High Cholesterol Physical inactivity and obesity Smoking Cigarette Smoking The facts are clear, cigarette smoking will shorten your life. Smoking can cause many illnesses along the way. As a healthcare provider, we recommend that you stop smoking. Assistance with quitting is available by contacting 0-654-NSNW-NOW. This is a free resource providing counseling, support, and referral. Or you may contact your personal physician. National Suicide Prevention Lifeline: The National Suicide Prevention Lifeline is a national network of local crisis centers that provides free and confidential emotional support to people in suicidal crisis or emotional distress 24 hours a day, 7 days a week. Don't Wait! Stop a Heart Attack Before it Starts What is a heart attack? A heart attack is damage or to a part of the heart from severely decreased or lack of blood flow to the heart. Over time, arteries can become narrow from the buildup of fat and cholesterol, which is called plaque. The plaque can rupture causing a blood clot to form. When the blood clot forms, the artery can become severely narrowed or completely blocked, causing a heart attack. Heart attack is the leading cause of in the [place]. 85% of muscle damage occurs within the first 2 hours. Delay in the recognition of heart attack symptoms increases the chances of . Know the early symptoms of a heart attack: Nausea Feeling of fullness in chest Jaw Pain Pain that travels down one or both arms Fatigue/being tired Anxiety Back Pain Chest pressure, squeezing, or discomfort Shortness of breath Sweating, or a cold sweat Feeling of impending doom There are unusual signs of a heart attack, too! Women, the elderly, and diabetics may present with atypical symptoms: Fainting/dizziness Weakness Confusion Risk Factors for a Heart Attack Some heart disease risk factors, such as age and family history, cannot be changed. Others, like smoking and lack of exercise, can be changed. Smoking High Cholesterol High Blood Pressure Family History Obesity Age Gender (Males are at higher risk) Lack of Exercise Diabetes Diet Stress Excessive Alcohol Intake If you or someone you know is experiencing the signs and symptoms of a heart attack, DON???T DELAY. Call immediately and seek help. If someone collapses, perform CPR! Do not attempt to drive if you are having symptoms of heart attack. Hands-Only CPR Why Hands-Only CPR? Hands-Only CPR has been shown to be as effective as conventional CPR for cardiac arrests that occur outside of a hospital. Survival depends on immediately receiving CPR from someone nearby. How do you perform Hands-Only CPR? There are two easy steps: Call if you see a teen or adult collapse Push hard and fast in the center of the chest at a beat of 100 beats per minute. Save a life! 4 WAYS TO GET AHEAD OF SEPSIS SEPSIS is a MEDICAL EMERGENCY. Time matters! Infections put you and your family at risk for a life-threatening condition called sepsis. Sepsis is the body's extreme response to an infection. It is life-threatening, and without timely treatment, sepsis can rapidly lead to tissue damage, organ failure, and . Sepsis happens when an infection you already have-in your skin, lungs, urinary tract or somewhere else-triggers a chain reaction throughout your body. 1 PREVENT INFECTIONS Take good care of chronic conditions. Talk to your doctor about getting the recommended vaccines. 2 PRACTICE GOOD HYGIENE Wash your hands frequently. Keep cuts or open sores clean and covered until they are healed. 3 KNOW THE SYMPTOMS Confusion or disorientation Shortness of breath High heart rate Fever, shivering, or feeling very cold Extreme pain or discomfort Clammy or sweaty skin 4 ACT FAST Get medical care IMMEDIATELY if you suspect sepsis or if you have an infection that is not getting better or is getting worse. To learn more about sepsis and how to prevent infections, visit www.cdc.gov/sepsis. Test Results Laboratory or Other Results This Visit (last charted value for your 07/25/2021 visit) Hematology 07/26/2021 9:11 AM WBC: 18.7 K/uL -- Normal range between ( 3.6 and 9.5 ) RBC: 4.36 Million/uL -- Normal range between ( 4.20 and 5.70 ) Hct: 41.3 % -- Normal range between ( 40.1 and 51.0 ) Hgb: 13.4 g/dL -- Normal range between ( 13.5 and 17.3 ) Platelet Count: 258 K/uL -- Normal range between ( 163 and 369 ) MCH: 30.7 pg -- Normal range between ( 25.6 and 32.2 ) MCHC: 32.4 Gram/dL -- Normal range between ( 32.2 and 36.5 ) MCV: 94.7 fL -- Normal range between ( 79.0 and 94.8 ) Slide Review: No Eos %: 0.0 % -- Normal range between ( 0.0 and 7.0 ) [place] #: 1.28 K/uL -- Normal range between ( 0.16 and 1.00 ) Eos #: 0.00 x10(3)/uL -- Normal range between ( 0.00 and 0.80 ) [place] %: 6.8 % -- Normal range between ( 3.0 and 9.0 ) Baso %: 0.2 % -- Normal range between ( 0.0 and 1.5 ) Baso #: 0.03 x10(3)/uL -- Normal range between ( 0.00 and 0.20 ) RDW: 13.1 % -- Normal range between ( 11.7 and 14.9 ) Neut %: 84.7 % -- Normal range between ( 34.0 and 71.0 ) Neut #: 15.85 K/uL -- Normal range between ( 1.56 and 6.13 ) Lymph %: 7.4 % -- Normal range between ( 19.3 and 53.1 ) Lymph #: 1.39 x10(3)/uL -- Normal range between ( 1.00 and 3.90 ) MPV: 9.5 fL -- Normal range between ( 9.4 and 12.4 ) IG#: 0.16 x10(3)/uL -- Normal range between ( 0.00 and 0.05 ) IG%: 0.90 % -- Normal range between ( 0.00 and 0.60 ) Blood Bank 07/25/2021 6:34 AM ABO/Rh Repeat: A POS 07/25/2021 6:33 AM ABO/Rh (ECHO): A POS Antibody Screen: Negative ABSC General Chemistry 07/26/2021 9:11 AM Creatinine Level: 1.20 mg/dL -- Normal range between ( 0.70 and 1.30 ) Sodium Level: 138 mmol/L -- Normal range between ( 136 and 146 ) Potassium Level: 5.0 mmol/L -- Normal range between ( 3.5 and 5.1 ) Chloride Level: 108 mmol/L -- Normal range between ( 102 and 112 ) Carbon Dioxide Level: 24 mmol/L -- Normal range between ( 21 and 32 ) Anion Gap: 11 -- Normal range between ( 9 and 20 ) Bun/Creatinine: 16.7 -- Normal range between ( 8.0 and 20.0 ) Calcium Level: 8.2 mg/dL -- Normal range between ( 8.4 and 10.1 ) eGFR : >60 mL/min/1.73m2 eGFR NonAfrican: 59 mL/min/1.73m2 Glucose Level: 142 mg/dL -- Normal range between ( 74 and 106 ) Blood Urea Nitrogen: 20 mg/dL -- Normal range between ( 7 and 22 ) 07/25/2021 6:50 AM Bilirubin Total: 0.5 mg/dL -- Normal range between ( 0.2 and 1.2 ) A/G Ratio: 1.4 -- Normal range between ( 1.1 and 2.5 ) ALT: 34 Units/Liter -- Normal range between ( 16 and 61 ) AST: 27 Units/Liter -- Normal range between ( 5 and 37 ) Globulin: 2.7 Gram/dL -- Normal range between ( 1.5 and 4.5 ) Alk Phos: 72 Units/Liter -- Normal range between ( 27 and 136 ) Protein Total: 6.4 Gram/dL -- Normal range between ( 6.4 and 8.2 ) Albumin Level: 3.7 Gram/dL -- Normal range between ( 3.4 and 5.0 ) Body Fluid 07/28/2021 8:54 AM Body Fluid Type: JN Drainage Creatinine BF: 0.9 mg/dL Patient Name:LOGANROBBY SOMMER I have received and understand this information and was given the opportunity to ask questions. Patient/Monument Erector Name: Patient/Monument Erector Signature: Relationship to Patient: Clinician/Hospital Monument Erector Signature: Date: Electronically signed by Laurie, [facility] Conversion Rim Turning Machine Operator Cerner at 01/11/2023 12:47 AM CDT documented in this encounter Plan of Treatment Not on file documented as of this encounter Visit Diagnoses Not on filedocumented in this encounter
--- OUTSIDE RECORDS SUMMARY | 2025-09-11 11:53 | XMS_ITS | Encounter Summary ---
Author Organization [employer] ([place], [place], [place], [place], [place]) Address [address] [place] [address] Care Team Providers Care Thread Cutter Tender Name Role Phone Unavailable Primary Care Provider Unavailabl e Encounter Details Date Type Department Care Team (Late st Contact Info) Description 07/28/2021 Transcribed Document [facility] [place] [facility] [place] [address] ProviderRadha MD [address] [place] [address] Social History Tobacco Use Types Packs/Day Years Used Date Smoking Tobacco: Never Assessed Comments Unknown Sex and Gender Information Value Date Recorded Sex Assigned at Unknown 03/21/2022 8:54 PM CDT Legal Sex Male 8:54 PM CDT Gender Identity Not on file Sexual Orientation Not on file documented as of this encounter Miscellaneous Notes * Cerner Conversion Note - Historical ProviderMD - 07/28/2021 5:00 AM CDT Chart Check - Review Order Profile Entered On: 07/28/2021 4:07 EDT Performed On: 07/28/2021 5:00 EDT by Judith Floyd Lpn Chart Check Powerplans Initiated/Discontinued as Appropriate : Yes All Active Orders Reviewed : Yes Judith Floyd Lpn - 07/28/2021 4:07 EDT documented in this encounter Plan of Treatment Not on file documented as of this encounter Visit Diagnoses Not on filedocumented in this encounter
--- OUTSIDE RECORDS SUMMARY | 2025-09-11 11:53 | XMS_ITS | Encounter Summary ---
Author Organization [employer] ([place], [place], [place], [place], [place]) Address [address] [place] [address] Care Team Providers Care Roll Wrapper Name Role Phone Unavailable Primary Care Provider Unavailabl e Encounter Details Date Type Department Care Team (Late st Contact Info) Description 07/25/2021 Transcribed Document [facility] [place] [facility] [place] [address] ProviderRadha MD [address] [place] [address] Social History Tobacco Use Types [...] Hess MD - 07/25/2021 8:12 AM CDT [facility] Main OR Preop Summary Primary Physician: KOMAL CORNEJO MD Finalized Date/Time: 07/25/21 13:12:39 Pt. Name: LOGANROBBY/Sex: 1950 Male Med Rec #: [id number] Physician: KOMAL CORNEJO MD Financial #: [id number] Pt. Type: I Room/Bed: ASA/2 Admit/Disch: 07/25/21 06:45:00 - Institution: [facility] PreOp Case Times Entry 1 In Preop 07/25/21 05:52:00 Ready for Holding n/a Room Patient Ready for 07/25/21 07:23:00 Surgery Patient Out of Preop 07/25/21 07:38:00 Patient Out of n/a Holding Room Last Modified By: Cathy Feng Rn 07/25/21 13:12:35 [facility] PreOp Case Times Audit 07/25/21 13:12:35 Condenser Cleaner: NEDRA Modifier: MFWARD <+> 1 Patient Out of Preop Finalized By: Cathy Feng Rn Document Signatures Signed By: Cathy Feng Rn 07/25/21 13:12 Electronically signed by Laurie [facility] Conversion Store Receiving Specialist Cerner at 01/11/2023 12:36 AM CDT documented in this encounter Plan of Treatment Not on file documented as of this encounter Visit Diagnoses Not on filedocumented in this encounter
--- OUTSIDE RECORDS SUMMARY | 2025-09-11 11:53 | XMS_ITS | Encounter Summary ---
Author Organization [employer] ([place], [place], [place], [place], [place]) Address [address] [place] [address] Care Team Providers Care Sand Filler Name Role Phone Unavailable Primary Care Provider Unavailabl e Encounter Details Date Type Department Care Team (Late st Contact Info) Description 07/28/2021 Transcribed Document [facility] [place] [facility] [place] [address] ProviderRadha MD [address], [place] [id number] Social History Tobacco Use Types Packs/Day Years Used Date Smoking Tobacco: Never Assessed Comments Unknown Sex and Gender Information Value Date Recorded Sex Assigned at Unknown 03/21/2022 8:54 PM CDT Legal Sex Male 8:54 PM CDT Gender Identity Not on file Sexual Orientation Not on file documented as of this encounter Miscellaneous Notes * Cerner Conversion Note - Radha Hess MD - 07/28/2021 10:21 AM CDT [facility] Entered On: 07/28/2021 10:23 EDT Performed On: 07/28/2021 10:21 EDT by Sanna Stephens ECONOMIC DEVELOPMENT SPECIALIST Patient Resource Center Provider Status : EST Other Established Provider Name : JOSHUA STOVALL Patient Phone Number : [phone] Patient Insurance Type : Medicare Source of Referral : Case management Location of Patient : Case management referral Primary Care Scheduled : Yes Primary Care Scheduled Type : Non [facility] Primary Care Provider Name : JOSHUA STOVALL Primary Care Appointment Date/Time : 08/04/2021 9:00 EST Specialty Care Scheduled : Yes Specialty Type Scheduled2 : Urology Urology Provider Name : KOMAL CORNEJO Urology Appointment Date/Timie : 08/03/2021 16:15 EST Qualify for Diabetes and/or Nutrition Referral : No Wound Care Appointment Made : No Why Patient Visited ED- Specialty spent : Other How Patient Arrived at ED : Other Primary Language : Moroccan Patient Resource Center Comment : Primary care and Dr. Cornejo appointments have been made Follow Up Needed : Sanna Johnson, ECONOMIC DEVELOPMENT SPECIALIST - 07/28/2021 10:21 EDT Electronically signed by Laurie [facility] Conversion Displayer Merchandise Cerner at 01/11/2023 12:49 AM CDT documented in this encounter Plan of Treatment Not on file documented as of this encounter Visit Diagnoses Not on filedocumented in this encounter
--- OUTSIDE RECORDS SUMMARY | 2025-09-11 11:53 | XMS_ITS | Encounter Summary ---
Author Organization [employer] ([place], [place], [place], [place], [place]) Address [address] [place] [address] Care Team Providers Care Flyer Builder Name Role Phone Unavailable Primary Care Provider Unavailabl e Encounter Details Date Type Department Care Team (Late st Contact Info) Description 07/27/2021 Transcribed Document [facility] [place] [facility] [place] [address] ProviderRadha MD [address] [place], [place] [id number] Social History Tobacco Use Types Packs/Day Years Used Date Smoking Tobacco: Never Assessed Comments Unknown Sex and Gender Information Value Date Recorded Sex Assigned at Unknown 03/21/2022 8:54 PM CDT Legal Sex Male 8:54 PM CDT Gender Identity Not on file Sexual Orientation Not on file documented as of this encounter Miscellaneous Notes * Cerner Conversion Note - Historical ProviderMD - 07/27/2021 2:00 AM CDT Sales Incentive Analyst Details Entered On: 07/27/2021 5:38 EDT Performed On: 07/27/2021 2:00 EDT by Fiorella Mart RN Order Details Transport Mode Order Detail : Wheelchair Isolation Precautions Order Detail : Standard Precautions Order Detail : N/A Lift/Transfer : Minimal Central Line Order Detail : No Room Service : Appropriate Arterial Line : No Patient Needs Meds Crushed/Liquid : No Fiorella Mart RN - 07/27/2021 5:38 EDT documented in this encounter Plan of Treatment Not on file documented as of this encounter Visit Diagnoses Not on filedocumented in this encounter
--- OUTSIDE RECORDS SUMMARY | 2025-09-11 11:53 | XMS_ITS | Encounter Summary ---
Author Organization [employer] ([place], [place], [place], [place], [place]) Address [address] [place] [address] Care Team Providers Care Collaborative Teacher Name Role Phone Unavailable Primary Care Provider Unavailabl e Encounter Details Date Type Department Care Team (Late st Contact Info) Description 07/25/2021 Transcribed Document [facility] [place] [facility] [place] [address] ProviderRadha MD [address] [id number] Social History Tobacco Use Types Packs/Day Years Used Date Smoking Tobacco: Never Assessed Comments Unknown Sex and Gender Information Value Date Recorded Sex Assigned at Unknown 03/21/2022 8:54 PM CDT Legal Sex Male 8:54 PM CDT Gender Identity Not on file Sexual Orientation Not on file documented as of this encounter Miscellaneous Notes * Cerner Conversion Note - Radha ProviderMD - 07/25/2021 2:00 AM CDT Spiritual Care Assessment Entered On: 07/25/2021 7:20 EDT Performed On: 07/25/2021 6:37 EDT by EVANS TA General Information Initial Visit : Yes Referred by : Patient Referral Reason Comment : Pre-surgery visit Ministry Provided to : Patient, Family/Significant other EVANS TA - 07/25/2021 7:19 EDT Spiritual Assessment Spiritual Assessment Comment/Summary Points : Provided pre-surgery visit and prayer with patient and . Spirital Assessment Comment/Summary Report : SPIRITUAL ASSESSMENT COMMENT/SUMMARY No qualifying data available. EVANS TA - 07/25/2021 7:19 EDT Interventions Emotional Support : Empathic/Engaged listening, Family/Significant other supported Spiritual and Yazidi : Prayer shared, Spiritual/Yazidi support provided EVANS TA - 07/25/2021 7:19 EDT Electronically signed by Laurie, [facility] Conversion Alarm Signal Operator Cerner at 01/11/2023 12:48 AM CDT documented in this encounter Plan of Treatment Not on file documented as of this encounter Visit Diagnoses Not on filedocumented in this encounter
--- OUTSIDE RECORDS SUMMARY | 2025-09-11 11:53 | XMS_ITS | Encounter Summary ---
Author Organization [facility] Address [address] [place] [address] Care Team Providers Care Certified Art Therapist Name Role Phone Gideon Parsons MD Primary Care Provider + [phone] Encounter Details Date Type Department Care Team (Late st Contact Info) Description 07/28/2025 Patient rounding ([facility] only) [facility] [address] [place] [id number] Anyi Palafox APRN [address] [place], [place] [id number] Social History Tobacco Use Types Packs/Day Years [...] AM EDT documented as of this encounter Progress Notes * Fiorella Godoy RegSched Rep - 07/28/2025 2:26 PM EST ..My name is Gardenia Murillo and I am the [employer] for [facility] Cardiology [facility]. I would like to thank you for being a loyal patient. If you do not mind I would like to ask you a few questions about your recent visit with us. Please feel free to reply if you wish to provide us with feedback on your first visit with our practice. First, could you tell me what went well with your recent visit? Secondly, we are always looking for ways to make our patients' experiences even better. Do you haveany recommendations on ways we may improve? Finally, overall were you satisfied with your first visit to us as a [facility]? In the next few days, you will be receiving a Patient Experience Survey. Thank you for taking the time to answer a few questions today. I hope you have a good day. documented in this encounter Plan of Treatment Scheduled Procedures Name Priority Associated Diagnoses Date/Ti me Left Heart Cath w/ Grafts and Coronaries Abnormal stress test LEFT HEART CATH w/cors Abnormal stress test documented as of this encounter Visit Diagnoses Not on filedocumented in this encounter Care Teams Certified Art Therapist Relationship Specialty Start Date End Date Gideon Parsons MD [address] [place] [address] [place] [id number] PCP - General Adolescent Medicine 07/28/25 documented as of this encounter
--- OUTSIDE RECORDS SUMMARY | 2025-09-11 11:53 | XMS_ITS | Encounter Summary ---
Author Organization [facility] Address [address] [place] [address] Care Team Providers Care Intensive Care Medicine Specialist Name Role Phone Gideon Parsons MD Primary Care Provider + [phone] Encounter Details Date Type Department Care Team (Late st Contact Info) Description 08/12/2025 Results Follow-Up [facility] CARDIOLOGY [address] [place] [id number] Anyi Palafox APRN [address] [place] [address] Social History Tobacco Use Types Packs/Day Years [...] as of this encounter Progress Notes * Anyi Palafox APRN - 08/25/2025 1:58 PM EST Please call the patient regarding his abnormal result. His holter shows an arrhythmia called nonsustained ventricular tachycardia. I would like to start him on Metoprolol to help with this abnormal rhythm. Is he ok with that? He will also need a left heart cath to see if blockage is the cause of his abnormal holter but let him know we can discuss at follow-up on documented in this encounter Miscellaneous Notes * Telephone Encounter - Debbie Segundo MA - 08/25/2025 3:06 PM EST Spoke with patient regarding results. Patient stated he verbally understood. Pt stated at this timehe had no questions. He would talk with Kaye at follow up. Pt stated he is okay with starting metoprolol. Pharmacy is correct in chart. documented in this encounter Plan of Treatment Scheduled Procedures Name Priority Associated Diagnoses Date/Ti me Left Heart Cath w/ Grafts and Coronaries Abnormal stress test LEFT HEART CATH w/cors Abnormal stress test documented as of this encounter Visit Diagnoses Not on filedocumented in this encounter Care Teams Intensive Care Medicine Specialist Relationship Specialty Start Date End Date Gideon Parsons MD [address] [place] [address] [place] [id number] PCP - General Adolescent Medicine 07/28/25 documented as of this encounter
--- OUTSIDE RECORDS SUMMARY | 2025-09-11 11:53 | XMS_ITS | Clinical Summary ---
Author Organization [facility] ([place], [place], [place], [place], [place]) Address [address] [place] [address] Care Team Providers Care Check Out Clerk Name Role Phone Unavailable Primary Care Provider [...]
--- OUTSIDE RECORDS SUMMARY | 2025-09-11 11:53 | XMS_ITS | Encounter Summary ---
Author Organization [employer] ([place], [place], [place], [place], [place]) Address [address] [place] [address] Care Team Providers Care President And Chief Commercial Officer Name Role Phone Unavailable Primary Care Provider Unavailabl e Encounter Details Date Type Department Care Team (Late st Contact Info) Description 07/27/2021 Transcribed Document [facility] [place] [facility] [place] [address] ProviderRadha MD [address] [place] [address] Social History Tobacco Use Types [...] Conversion Note - Radha ProviderMD - 07/27/2021 7:55 AM CDT Patient: ROBBY MACEDO Age: 71 Years Sex: Male : 1950 Subjective No acute events. He c/o nausea. No flatus. Pain controlled. Intake & Output Intake & Output Totals Last 24 Hours (7a-7a) Intake (19 Events) Continuous Infusions (1500 mL) Medications (10 mL) Oral Intake (1580 mL) Output (5 Events) Ga Catheter (2450 mL) Surgical Drain/Tube Output: (245 mL) Input Total: 3090 mL Output Total: 2695 mL Balance: 395 mL Vital Signs T: 37.6 ??C TMIN: 36.6 ??C TMAX: 37.6 ??C HR: 90(Monitored) RR: 15 BP: 153/90 SpO2: 94% Physical Exam NAD AO S mod distended Ga clear VTE Risk Total Score VTE Prophylaxis - Surgical Sequential Compression Device Start: 07/25/21 10:48:00 EDT, Bilateral, Length: Knee High, Continuous Order (KOMAL [place]) Sequential Compression Device Start: 07/25/21 10:48:00 EDT, Bilateral, Length: Knee High, While patient is in bed, Continuous Order (KOMAL [place]NE[place]) Assessment/Plan Amb / IS Slow diet until flatus Pathology reviewed with patient Malignant neoplasm of prostate C61, Malignant neoplasm of prostate C61 Orders: Diet, Adult Urinary Catheter Renewal/Continuation Medications Inpatient acetaminophen-HYDROcodone 325 mg-7.5 mg oral [...] Allergy 24HR 55 mcg/inh nasal spray, 2 [place], Nasal, Daily Sudafed, Oral, Q6H, PRN Vitamin [...]
--- OUTSIDE RECORDS SUMMARY | 2025-09-11 11:53 | XMS_ITS | Encounter Summary ---
Author Organization [employer] ([place], [place], [place], [place], [place]) Address [address] [place] [address] Care Team Providers Care Treatment Specialist Name Role Phone Unavailable Primary Care Provider Unavailabl e Encounter Details Date Type Department Care Team (Late st Contact Info) Description 07/25/2021 Transcribed Document [facility] [place] [address] ProviderRadha MD [address] [place] [address] Social History Tobacco Use Types Packs/Day [...] Note - Radha Hess MD - 07/25/2021 10:55 AM CDT DATE OF PROCEDURE: 07/25/2021 SURGEON: Misael Jimenez MD PREOPERATIVE DIAGNOSIS: Adenocarcinoma of the prostate. POSTOPERATIVE DIAGNOSIS: Adenocarcinoma of the prostate. PROCEDURES PERFORMED: 1. Robotic-assisted laparoscopic radical prostatectomy. 2. Bilateral pelvic lymphadenectomy. ANESTHESIA: General. BLOOD LOSS: 50 mL. COMPLICATIONS: None. SPECIMENS: 1. Prostate with seminal vesicles. 2. Bilateral pelvic lymph nodes. DESCRIPTION OF PROCEDURE: A 71-year-old male, correctly identified in the preoperative holding area. Informed consent was obtained after risks and benefits were reviewed with the patient. He was taken to procedure room, positioned in supine position. Anesthesia was induced. He was repositioned to lithotomy position. All pressure points were padded. Proper time-out of procedure was completed. Preoperative antibiotics were given. The genitourinary area was prepped and draped in normal sterile fashion and the abdominal wall was shaved, prepped, and draped in normal sterile fashion. A Ga catheter was placed sterilely on the operative field. A supraumbilical incision was made and the abdomen was entered with a Veress needle. Position confirmed with saline drop test. The abdomen was insufflated with carbon dioxide. Visual molder operator was then used to gain laparoscopic access into the abdomen. Laparoscopy was performed. No evidence of injury with passage of the Veress needle or visual obturator. Laparoscopic trocars were placed under laparoscopic visualization in standard. The patient was placed in the Trendelenburg position. The robot was docked as standard. The robotic portion of the procedure was begun by incising the peritoneum lateral to the medial umbilical ligaments and then incising the medial umbilical ligament superiorly. The bladder was placed on cephalad traction. Dissection was continued into the pelvis. The fat overlying the prostate was removed for identification of anatomic structures. The endopelvic fascia was incised bilaterally and the puboprostatic ligaments were incised. The dorsal venous complex was controlled using [id number] Vicryl suture. Bladder neck was identified by manipulation of the Ga catheter balloon to identify anatomic landmarks. Anterior cystotomy was made and the catheter was retracted anteriorly. Dissection was continued along the posterior bladder neck. Dissection was continued posterior to the prostate where the seminal vesicles and vasa were encountered. The seminal vesicle was dissected and freed and the vasa were incised. Dissection was then continued posterior to the prostate along Denonvilliers fascia. Dissection was continued to the prostatic apex. The prostatic pedicles were controlled using vessel sealer device. The prostate was then taken off anterior retraction and placed on cephalad retraction. Dissection was continued along the prostatic apex. The urethra was incised with adequate urethral stump. The prostate was placed into a laparoscopic EndoCatch sac. Bilateral pelvic lymphadenectomy was performed from the iliac vein to the obturator nerve to the pelvic sidewall. This was performed bilaterally. Vesicourethral anastomosis was performed using double-armed barbed suture starting at the posterior bladder neck and running bidirectionally. Watertight anastomosis was achieved. The bladder was irrigated without evidence of anastomotic leak. A Bradley-Martinez drain was placed into the pelvis. The robot was undocked as standard. The specimen was removed through extended midline incision. The midline incision fascia was closed using running PDS suture. The subcutaneous tissues were reapproximated using subcuticular Vicryl suture and Dermabond. At the conclusion of procedure, all sponge counts, needle counts, instrument counts were announced as correct. DISPOSITION: The patient tolerated the procedure well. He was taken to recovery room in stable condition. He is admitted to the hospital postoperatively with clear liquid diet, JN drain, and Ga catheter. /[id number] Misael Jimenez MD JALONDRA/MIAH / LASHELL / MODL /[id number] documented in this encounter Plan of Treatment Not on file documented as of this encounter Visit Diagnoses Not on filedocumented in this encounter
--- OUTSIDE RECORDS SUMMARY | 2025-09-11 11:53 | XMS_ITS | Encounter Summary ---
Author Organization [facility] ([place], [place], [place], [place], [place]) Address [address] [place] [address] Care Team Providers Care Video Game Creator Name Role Phone Unavailable Primary Care Provider Unavailabl e Encounter Details Date Type Department Care Team (Late st Contact Info) Description 07/26/2021 Transcribed Document [facility] [place] Family Medicine [facility] [place] [address] ProviderRadha MD [address] [place] [address] Social History Tobacco Use Types Packs/Day Years Used Date Smoking Tobacco: Never Assessed Comments Unknown Sex and Gender Information Value Date Recorded Sex Assigned at Unknown 03/21/2022 8:54 PM CDT Legal Sex Male 8:54 PM CDT Gender Identity Not on file Sexual Orientation Not on file documented as of this encounter Miscellaneous Notes * Cerner Conversion Note - Historical ProviderMD - 07/26/2021 5:00 PM CDT Chart Check - Review Order Profile Entered On: 07/26/2021 16:41 EDT Performed On: 07/26/2021 17:00 EDT by Karolina Daly RN Chart Check Powerplans Initiated/Discontinued as Appropriate : Yes All Active Orders Reviewed : Yes Karolina Daly RN - 07/26/2021 16:41 EDT documented in this encounter Plan of Treatment Not on file documented as of this encounter Visit Diagnoses Not on filedocumented in this encounter
--- OUTSIDE RECORDS SUMMARY | 2025-09-11 11:53 | XMS_ITS | Encounter Summary ---
Author Organization [facility] ([place], [place], [place], [place], [place]) Address [address] [place] [address] Care Team Providers Care Carton Catcher Name Role Phone Unavailable Primary Care Provider Unavailabl e Encounter Details Date Type Department Care Team (Late st Contact Info) Description 07/26/2021 Transcribed Document [facility] [place] [facility] [place] [address] ProviderRadha MD [address] [place] [address] Social History Tobacco Use Types [...] Conversion Note - Radha ProviderMD - 07/26/2021 8:15 AM CDT UM Authorization Entered On: 07/26/2021 8:16 EDT Performed On: 07/26/2021 8:15 EDT by DONNA LEE RN Primary Insurance Authorization Authorization and Policy Numbers : Insurance 1 Health Plan: [employer] CHO[employer] PPO Policy Number: [id number] Authorization Number: [id number] Insurance Primary Name : [employer] Choice [id number] Authorization Status-Primary : Notification only Auth/Referral Contact Name-Primary : Saravanan Kaplan Authorization Number-Primary : [id number] Authorized Service Begin Date-Primary : 07/25/2021 EDT Historical Authorization Comments-Primary : Comment 1: Per [facility] [employer] Choice approved INPT auth# [id number] 2 days (MALCOLM ARANA, Power Equipment Technology Instructor 07/22/2021 12:46) DONNA LEE RN - 07/26/2021 8:15 EDT Electronically signed by Laurie [facility] Conversion Milieu Counselor Cerner at 01/11/2023 12:48 AM CDT documented in this encounter Plan of Treatment Not on file documented as of this encounter Visit Diagnoses Not on filedocumented in this encounter
--- OUTSIDE RECORDS SUMMARY | 2025-09-11 11:53 | XMS_ITS | Encounter Summary ---
Author Organization [employer] ([place], [place], [place], [place], [place]) Address [address] [place] [address] Care Team Providers Care Helper Electrical Name Role Phone Unavailable Primary Care Provider Unavailabl e Encounter Details Date Type Department Care Team (Late st Contact Info) Description 07/25/2021 Transcribed Document [facility] [place] [facility] [place] [address] ProviderRadha MD [address] [place] [address] Social History Tobacco Use Types [...] Conversion Note - Radha ProviderMD - 07/25/2021 6:43 AM CDT Admission History, Adult Entered On: 07/25/2021 13:49 EDT Performed On: 07/25/2021 6:43 EDT by BINH WOODWARD RN Advance Directive Patient has Advance Directive *Q : Yes, Advance Directive not with the patient Advance Directive Type : Living will Copy Advance Directive Verified/on Chart : Yes Date Hospital Obtained Advance Directive : 07/22/2021 EDT BINH WOODWARD RN - 07/25/2021 13:46 EDT Anesthesia/Transfusion History Family History of Anesthesia Reaction : No prior transfusion(s) Blood Transfusion Acceptable to Patient : Yes Transfusion History : Prior anesthesia without reaction Family History of Anesthesia Reaction : None BINH WOODWARD RN - 07/25/2021 13:46 EDT Functional Assessment Living Situation : Home Patient Lives With : Spouse Current Home Treatments : None BINH WOODWARD RN - 07/25/2021 13:46 EDT General Info Preferred Name : Patrick or Reinier Arrived From : Home Mode of Arrival on Unit : Ambulatory Legal Guardian : Spouse Support Person/Pt Rep Contact Information : Zulma Macedo [phone] Want Family/Rep/Phys Notified of Admit : No Emergency Contact #1 : Zulma Macedo Emergency Contact #1 cell Emergency Contact #1 Relationship : Emergency Contact #2 : Donte Mathis Emergency Contact #2 Emergency Contact #2 Relationship : daughter Chief Complaint : to remove prostate after +biopsy for CA Information Obtained From : Patient Primary Language : Vietnamese Preferred Communication Mode : Verbal Communication Barrier : None Greenskeeper Supervisor Needed : No Objects to Sharing Info w Family : No BINH WOODWARD RN - 07/25/2021 13:46 EDT Fall Risk Scales ABCs Fall Injury Risk Identification : None BRANCH Hx Falls Immediate/Within 3 Months : No Branch Secondary Diagnosis : Yes BRANCH Use of Ambulatory Aid : None BRANCH IV Therapy or IV Access : Yes Evon Gait/Transferring : Normal, bedrest, immobile Branch Mental Status : Oriented to own ability Branch Fall Risk Score : 35 BRANCH Fall Scale Risk Level : 25-45 Medium Risk [place] Fall Interventions : Adequate lighting, Assistive devices within reach, Bed in low position, Call device within reach, Personal items within reach, Reinforced to call for assistance before getting out of bed, Room free of clutter/spills, Upper side-rails up Barriers to Learning : None evident BINH WOODWARD RN - 07/25/2021 13:46 EDT Health Histories Smoking Status : Never (less than 100 in lifetime; none in last 30 days) Smokeless Tobacco Status : Never Implant/Device Type, Assessor and Model : none BINH WOODWARD RN - 07/25/2021 13:46 EDT Social History (As Of: 07/25/2021 13:49:04 EDT) Tobacco: Never (less than 100 in lifetime) Smoking Status. Never Smokeless Tobacco Status. (Last Updated: 07/21/2021 13:06:29 EDT by PRAVEEN MCDOWELL RN) Alcohol: Alcohol Use History Yes. Alcohol Use Frequency Rarely. (Last Updated: 07/21/2021 13:06:41 EDT by PRAVEEN MCDOWELL RN) Substance Abuse: Drug Use Hx: No. Use in Last 12 Months: No. (Last Updated: 07/21/2021 13:06:52 EDT by PRAVEEN MCDOWELL RN) Height and Weight, Clinical Dosing Height Source : Measured Height Entry Format : [place] Height, Feet : 0 ft(Converted to: 0 cm, 0 Inch) Height, Inches : 76.25 Inch(Converted to: 6 ft 4 Inch, 193.67 cm) Clinical Height : 193.68 cm Weight Source : Standing scale Weight Entry Format : [place] Clinical Dosing Weight : 106.05 kg Weight, Pounds : 233.3 lb Body Surface Area (BSA) : 2.37 m2 Body Mass Index : 28.3 kg/m2 (HI) [place] Body Weight : 86 kg BINH WOODWARD RN - 07/25/2021 13:46 EDT Infectious Disease History Does patient have symptoms of COVID-19? : No Has the Patient Been Tested for COVID-19 in the last 14 days? : Yes, Patient stated results Negative Does the Patient state known exposure to a COVID-19 positive case in the last 14 days? : No Patient Vaccinated for COVID-19 : Fully vaccinated BINH WOODWARD RN - 07/25/2021 13:46 EDT Infectious Disease Risk Screening Grid Cough < 2 wks of unknown origin : NO Cough > 2 weeks : NO Blood in Sputum : NO Fever or self-reported Fever : NO Rash of unknown origin : NO Headache : NO Stiff neck : NO Night Sweats : NO Unexplained Weight Loss : NO Diarrhea (3 episode per day) : NO BINH WOODWARD RN - 07/25/2021 13:46 EDT Physical contact outside [place] in the last 30 days : No Hospitalized in Foreign Country : No Infectious Disease History : Chicken pox/Shingles, Influenza, Measles INF Disease TB Screening Calc : 0 INF Disease Recent Travel Calc : 0 BINH WOODWARD RN - 07/25/2021 13:46 EDT Influenza Vaccine Asmt, Adult Previous Vaccines from Immunization Schedule : Previous Vaccines and Immunizations SARS-CoV-2 mRNA (tozinameran) vaccine: 0 unknown unit (05/21/21 00:00:00) SARS-CoV-2 mRNA (tozinameran) vaccine: 0 unknown unit (11/01/20 00:00:00) SARS-CoV-2 mRNA (tozinameran) vaccine: 0 unknown unit (10/21/20 00:00:00) Influenza Immunization, Current Season : Yes BINH WOODWARD RN - 07/25/2021 13:46 EDT Pneumococcal Vaccine Previous Vaccines from Immunization Schedule : Previous Vaccines and Immunizations SARS-CoV-2 mRNA (tozinameran) vaccine: 0 unknown unit (05/21/21 00:00:00) SARS-CoV-2 mRNA (tozinameran) vaccine: 0 unknown unit (11/01/20 00:00:00) SARS-CoV-2 mRNA (tozinameran) vaccine: 0 unknown unit (10/21/20 00:00:00) Pneumonia Immunization Received : Yes BINH WOODWARD RN - 07/25/2021 13:46 EDT Order Details Order Detail : N/A Patient Needs Meds Crushed/Liquid : No BINH WOODWARD RN - 07/25/2021 13:46 EDT Nutrition History Eating Poorly Due to Decreased Appetite : No Unplanned Weight Loss in Past 3-6 Months : No Malnutrition Screening Tool Total(mal) : 0 Malnutrition Screening Tool Risk Level : Patient not at risk BINH WOODWARD RN - 07/25/2021 13:46 EDT [place] Suicide Severity Rating Scale (C-SSRS) CSSRS Past Month Wish to be : No CSSRS Past Month Suicidal Thoughts : No CSSRS Lifetime Suicide Behavior : No Suicide Severity Rating Score : 0 Suicide Severity Rating : No Additional Care Required at this time BINH WOODWARD RN - 07/25/2021 13:46 EDT Psychosocial History Do You Have a History of the Following? : Patient denies history Currently in Unsafe Situation : No BINH WOODWARD RN - 07/25/2021 13:46 EDT Sleep Apnea Risk Assmt Hx of Obstructive Sleep Apnea Diagnosis : No Snore Loudly : No Tired, Fatigued, or Sleepy During Day : No Observed Stopping Breathing During Sleep : No Have/Are Being Treated for Hypertension : Yes BMI Greater Than 35 kg/m2 : No Age over 50 Years Old : Yes Neck Circumference Greater Than 40 cm : No Gender Male : Yes STOP-BANG Sleep Apnea Risk Level Score : 3 BINH WOODWARD RN - 07/25/2021 13:46 EDT Valuables and Belongings Valuables and Belongings : Clothing, Personal devices, Personal items Clothing : Common streetwear Clothing Disposition : Bedside Personal Device Disposition : Bedside Personal Devices : Glasses Personal Items : Cell phone, Other: ore charger Personal Items Disposition : Bedside BINH WOODWARD RN - 07/25/2021 13:46 EDT documented in this encounter Plan of Treatment Not on file documented as of this encounter Visit Diagnoses Not on filedocumented in this encounter
--- OUTSIDE RECORDS SUMMARY | 2025-09-11 11:53 | XMS_ITS | Encounter Summary ---
Author Organization [email or web address] ([place], [place], [place], [place], [place]) Address [address] [place] [address] Care Team Providers Care Retail Sales Lead Name Role Phone Unavailable Primary Care Provider Unavailabl e Encounter Details Date Type Department Care Team (Late st Contact Info) Description 07/21/2021 Transcribed Document [facility] [place] [facility] [place] [address] ProviderRadha MD [address] [place] [address] Social History Tobacco Use Types Packs/Day Years Used Date Smoking Tobacco: Never Assessed Comments Unknown Sex and Gender Information Value Date Recorded Sex Assigned at Unknown 03/21/2022 8:54 PM CDT Legal Sex Male 8:54 PM CDT Gender Identity Not on file Sexual Orientation Not on file documented as of this encounter Miscellaneous Notes * Cerner Conversion Note - Radha ProviderMD - 07/21/2021 1:06 PM CDT PAT Adult Entered On: 07/21/2021 13:15 EDT Performed On: 07/21/2021 13:06 EDT by PRAVEEN MCDOWELL RN Vital Measurements Temperature Source : Temporal artery scanning Temperature, Fahrenheit : 98.1 Deg F Clinical Temperature, C : 36.7 Deg C Peripheral Pulse Rate : 67 bpm Respiratory Rate : 16 Breaths/Min Blood Pressure Location : Arm, right upper Systolic Blood Pressure : 134 mmHg Diastolic Blood Pressure : 82 mmHg Oxygen Saturation : 100 % Oxygen Therapy Mode : Room air STONE TAM RN - 07/22/2021 11:24 EDT Pain Assessment Pain Assessment : Initial assessment Pain Scale Goal : 5 Pain Scale Used : 0-10 Scale STONE TAM RN - 07/22/2021 11:24 EDT Height and Weight, Clinical Dosing Height Source : Measured Height Entry Format : Crowdwave Height, Feet : 0 ft(Converted to: 0 cm, 0 Inch) Height, Inches : 76.25 Inch(Converted to: 6 ft 4 Inch, 193.67 cm) Clinical Height : 193.68 cm Weight Source : Standing scale Weight Entry Format : Crowdwave Clinical Dosing Weight : 106.05 kg Weight, Pounds : 233.3 lb Body Surface Area (BSA) : 2.37 m2 Body Mass Index : 28.3 kg/m2 (HI) [place] Body Weight : 86 kg STONE TAM RN - 07/22/2021 11:24 EDT Health Histories Smoking Status : Never (less than 100 in lifetime; none in last 30 days) Smokeless Tobacco Status : Never Implant/Device Type, Hotel Controller and Model : none PRAVEEN MCDOWELL RN - 07/21/2021 13:06 EDT Social History (As Of: 07/22/2021 11:36:29 EDT) Tobacco: Never (less than 100 in lifetime) Smoking Status. Never Smokeless Tobacco Status. (Last Updated: 07/21/2021 13:06:29 EDT by PRAVEEN MCDOWELL RN) Alcohol: Alcohol Use History Yes. Alcohol Use Frequency Rarely. (Last Updated: 07/21/2021 13:06:41 EDT by PRAVEEN MCDOWELL RN) Substance Abuse: Drug Use Hx: No. Use in Last 12 Months: No. (Last Updated: 07/21/2021 13:06:52 EDT by PRAVEEN MCDOWELL RN) Infectious Disease History Does patient have symptoms of COVID-19? : No Has the Patient Been Tested for COVID-19 in the last 14 days? : Yes, Patient stated results Negative Does the Patient state known exposure to a COVID-19 positive case in the last 14 days? : No STONE TAM RN - 07/22/2021 11:24 EDT Infectious Disease Risk Screening Grid Cough < 2 wks of unknown origin : NO Cough > 2 weeks : NO Blood in Sputum : NO Fever or self-reported Fever : NO Rash of unknown origin : NO Headache : NO Stiff neck : NO Night Sweats : NO Unexplained Weight Loss : NO Diarrhea (3 episode per day) : NO STONE TAM RN - 07/22/2021 11:24 EDT INF Disease TB Screening Calc : 0 STONE TAM RN - 07/22/2021 11:24 EDT Patient Vaccinated for COVID-19 : Fully vaccinated Physical contact outside [place] in the last 30 days : No Hospitalized in Foreign Country : No Infectious Disease History : Chicken pox/Shingles, Influenza, Measles INF Disease Recent Travel Calc : 0 PRAVEEN MCDOWELL RN - 07/21/2021 13:06 EDT COVID19 PreProcedure Screening Date PreProcedure COVID-19 test known? : Yes Date of PreProcedure COVID-19 : 07/21/2021 EDT Has patient been isolated since the test : Yes Exposed to COVID19 symptoms since test? : No Cathy Feng Rn - 07/25/2021 6:17 EDT Is this an Emergent or Add on Procedure? : No PRAVEEN MCDOWELL RN - 07/21/2021 13:06 EDT Anesthesia/Transfusion History Blood Transfusion Acceptable to Patient : Yes STONE TAM RN - 07/22/2021 11:24 EDT Family History of Anesthesia Reaction : No prior transfusion(s) Transfusion History : Prior anesthesia without reaction Family History of Anesthesia Reaction : None PRAVEEN MCDOWELL RN - 07/21/2021 13:06 EDT Functional Assessment Functional ADL Evaluation Index EBN Bathing : Independent (2) Dressing : Independent (2) Toileting : Independent (2) Transferring Bed or Chair : Independent (2) Continence : Independent (2) Feeding : Independent (2) PRAVEEN MCDOWELL RN - 07/21/2021 13:06 EDT ADL Index Score : 12 PRAVEEN MCDOWELL RN - 07/21/2021 13:06 EDT Advance Directive Copy Advance Directive Verified/on Chart : Yes Date Hospital Obtained Advance Directive : 07/22/2021 EDT STONE TAM RN - 07/22/2021 11:24 EDT Patient has Advance Directive *Q : Yes, Advance Directive not with the patient Advance Directive Type : Living will PRAVEEN MCDOWELL RN - 07/21/2021 13:06 EDT Spiritual/Cultural Needs Any Spiritual/Cultural Needs or Requests : Yes Spiritual/Cultural Needs Comment : Prayer before OR 07/25/2021 Spiritual/Cultural Needs Comment : Prayer before OR 07/25/2021 PRAVEEN MCDOWELL RN - 07/21/2021 13:06 EDT [place] Suicide Severity Rating Scale (C-SSRS) CSSRS Past Month Wish to be : No CSSRS Past Month Suicidal Thoughts : No CSSRS Lifetime Suicide Behavior : No Suicide Severity Rating Score : 0 Suicide Severity Rating : No Additional Care Required at this time PRAVEEN MCDOWELL RN - 07/21/2021 13:06 EDT Psychosocial History Do You Have a History of the Following? : Patient denies history Currently in Unsafe Situation : No PRAVEEN MCDOWELL RN - 07/21/2021 13:06 EDT Teaching/Learning Assessment Barriers To Learning : None evident Individuals Taught : Patient, Spouse Readiness to Learn : Cooperative Readiness to Learn : Explanation, Printed materials STONE TAM RN - 07/22/2021 11:24 EDT Education Topics, Periop Preadmission Perioperative Education Grid Arrival Time/Place : Verbalizes understanding Infection Control : Verbalizes understanding IV's : Verbalizes understanding NPO Status/Directions : Verbalizes understanding Pain Management : Verbalizes understanding Postoperative Care Preparations : Verbalizes understanding Preprocedure Preparations : Verbalizes understanding Preprocedure Tests/Labs : Verbalizes understanding Remove Body Piercings : Verbalizes understanding Responsible Adult : Verbalizes understanding Take/Hold Medications Pre-Procedure : Verbalizes understanding STONE TAM RN - 07/22/2021 11:24 EDT Responsible Adult Contact Information : Zulma Macedo, spouse, STONE TAM RN - 07/22/2021 11:24 EDT General Info Arrived From : Home Mode of Arrival on Unit : Ambulatory Patient Arrival Date/Time : 07/25/2021 5:30 EDT Legal Guardian : Spouse Preferred Communication Mode : Verbal Objects to Sharing Info w Family : No STONE TAM RN - 07/22/2021 11:24 EDT Preferred Name : [place] Support Person/Pt Rep Contact Information : Zulma Macedo [phone] Want Family/Rep/Phys Notified of Admit : No Emergency Contact #1 : Zulma Macedo Emergency Contact #1 cell Emergency Contact #1 Relationship : Emergency Contact #2 : Donte Mathis Emergency Contact #2 Emergency Contact #2 Relationship : daughter Chief Complaint : to remove prostate after +biopsy for CA Information Obtained From : Patient Primary Language : [place] Communication Barrier : None Simulation Tech Needed : No PRAVEEN MCDOWELL RN - 07/21/2021 13:06 EDT Miguel Scale Miguel Sensory Perception : No impairment Miguel Moisture : Rarely moist Miguel Activity : Walks frequently Miguel Mobility : No limitation Miguel Nutrition : Excellent Miguel Friction and Shear : No apparent problem Miguel Score : 23 PRAVEEN MCDOWELL RN - 07/21/2021 13:06 EDT Sleep Apnea Risk Assmt BMI Greater Than 35 kg/m2 : No Neck Circumference Greater Than 40 cm : No STOP-BANG Sleep Apnea Risk Level Score : 3 STONE TAM RN - 07/22/2021 11:24 EDT Hx of Obstructive Sleep Apnea Diagnosis : No Snore Loudly : No Tired, Fatigued, or Sleepy During Day : No Observed Stopping Breathing During Sleep : No Have/Are Being Treated for Hypertension : Yes Age over 50 Years Old : Yes Gender Male : Yes PRAVEEN MCDOWELL RN - 07/21/2021 13:06 EDT Pain Scale Intensity : 0 STONE TAM RN - 07/22/2021 11:24 EDT Image 4 - Images currently included in the form version of this document have not been included in the text rendition version of the form. documented in this encounter Plan of Treatment Not on file documented as of this encounter Visit Diagnoses Not on filedocumented in this encounter
--- OUTSIDE RECORDS SUMMARY | 2025-09-11 11:53 | XMS_ITS | Encounter Summary ---
Author Organization [employer] ([place], [place], [place], [place], [place]) Address [address] [place] [address] Care Team Providers Care Clinical Nursing Manager Name Role Phone Unavailable Primary Care Provider Unavailabl e Encounter Details Date Type Department Care Team (Late st Contact Info) Description 07/22/2021 Transcribed Document [facility] [place] [address] ProviderRadha MD [address] [place] [address] Social History Tobacco Use Types Packs/Day Years Used Date Smoking Tobacco: Never Assessed Comments Unknown Sex and Gender Information Value Date Recorded Sex Assigned at Unknown 03/21/2022 8:54 PM CDT Legal Sex Male 8:54 PM CDT Gender Identity Not on file Sexual Orientation Not on file documented as of this encounter Miscellaneous Notes * Cerner Conversion Note - Radha ProviderMD - 07/22/2021 12:46 PM CDT UM Authorization Entered On: 07/22/2021 12:47 EDT Performed On: 07/22/2021 12:46 EDT by MALCOLM ARANA, Finish Carpenter Primary Insurance Authorization Authorization and Policy Numbers : Insurance 1 Health Plan: [employer] PPO Policy Number: [id number] Authorization Number: Insurance Primary Name : [employer] [id number] Authorization Status-Primary : Notification only Auth/Referral Contact Name-Primary : Saravanan Kaplan Authorization Number-Primary : [id number] Authorized Service Begin Date-Primary : 07/25/2021 EDT Authorization Comments-Primary : Per [facility] [employer] approved INPT auth# [id number] 2 days Historical Authorization Comments-Primary : No Authorization Comments Found MALCOLM ARANA, Finish Carpenter - 07/22/2021 12:46 EDT documented in this encounter Plan of Treatment Not on file documented as of this encounter Visit Diagnoses Not on filedocumented in this encounter
--- OUTSIDE RECORDS SUMMARY | 2025-09-11 11:53 | XMS_ITS | Encounter Summary ---
Author Organization [facility] Address [address] [place] [address] Care Team Providers Care Film Loader Name Role Phone Gideon Parsons MD Primary Care Provider + [phone] Encounter Details Date Type Department Care Team (Latest Contact Info) Description 09/02/2025 Travel Social History Tobacco Use Types Packs/Day [...] on filedocumented in this encounter Care Teams Film Loader Relationship Specialty Start Date End Date Gideon Parsons MD [facility] [address] [place] [address] PCP - General Adolescent Medicine 07/28/25 documented as of this encounter
--- OUTSIDE RECORDS SUMMARY | 2025-09-11 11:53 | XMS_ITS | Encounter Summary ---
Author Organization [employer] ([place], [place], [place], [place], [place]) Address [address] [place] [address] Care Team Providers Care Fisher Net Name Role Phone Unavailable Primary Care Provider Unavailabl e Encounter Details Date Type Department Care Team (Late st Contact Info) Description 07/26/2021 Transcribed Document [facility] [place] [facility] [address] ProviderRadha MD [address] [id number] Social History Tobacco Use Types Packs/Day Years Used Date Smoking Tobacco: Never Assessed Comments Unknown Sex and Gender Information Value Date Recorded Sex Assigned at Unknown 03/21/2022 8:54 PM CDT Legal Sex Male 8:54 PM CDT Gender Identity Not on file Sexual Orientation Not on file documented as of this encounter Miscellaneous Notes * Cerner Conversion Note - Historical ProviderMD - 07/26/2021 2:00 AM CDT Plastics Fabricator Details Entered On: 07/26/2021 1:19 EDT Performed On: 07/26/2021 2:00 EDT by Najma Cobb V, RN Order Details Transport Mode Order Detail : Wheelchair Isolation Precautions Order Detail : Standard Precautions Order Detail : N/A IV Order Detail : 1 Oxygen Order Detail : 0 Nurse Collect Order Detail : 0 Lift/Transfer : Minimal Central Line Order Detail : No Room Service : Appropriate Arterial Line : No Patient Needs Meds Crushed/Liquid : No Najma Cobb V, RN - 07/26/2021 1:19 EDT documented in this encounter Plan of Treatment Not on file documented as of this encounter Visit Diagnoses Not on filedocumented in this encounter
--- OUTSIDE RECORDS SUMMARY | 2025-09-11 11:53 | XMS_ITS | Encounter Summary ---
Author Organization [employer] ([place], [place], [place], [place], [place]) Address [address] [place] [address] Care Team Providers Care Environmental Engineering Professor Name Role Phone Unavailable Primary Care Provider Unavailabl e Encounter Details Date Type Department Care Team (Late st Contact Info) Description 07/28/2021 Transcribed Document [facility] [place] [facility] [place] [address] ProviderRadha MD [address] [place] [address] Social History Tobacco Use Types [...] Conversion Note - Historical ProviderMD - 07/28/2021 10:10 AM CDT Nursing Discharge Summary Entered On: 07/28/2021 10:11 EDT Performed On: 07/28/2021 10:10 EDT by Eufemia Hui RN Discharge Documentation Discharge Date/Time : 07/28/2021 12:00 EDT Patient Disposition, General : Discharge Discharge To : Home with ambulatory/outpatient follow-up Accompanied By, Discharge : Spouse Personal Belongings With Patient : Yes Teaching Method : Explanation, Printed materials Teaching Evaluation : Verbalizes understanding Eufemia Hui RN - 07/28/2021 10:10 EDT Education Comment : no lifting over 10 lbs Eufemia Hui RN - 07/28/2021 10:12 EDT documented in this encounter Plan of Treatment Not on file documented as of this encounter Visit Diagnoses Not on filedocumented in this encounter
[2025-09-11 12:22] VITALS: BMI 28.0
[2025-09-11 12:47] VITALS: BP 133/77; PULSE 56; RESP 18; O2SAT 97
[2025-09-11 12:59] LABS: Chloride 106 mmol/L (98-107); Sodium 136 mmol/L (136-145)
[2025-09-11 13:00] LABS: Potassium 4.2 mmoL/L (3.5-5.1)
[2025-09-11 13:03] LABS: Anion Gap 10.2 mEq/L (5-15); Blood Urea Nitrogen 21 mg/dl (9-20); Calcium 9.4 mg/dl (8.4-10.2); Carbon Dioxide 24 mmol/L (22.0-30.0); Creatinine Clearance Estimated 83 mL/min (50-200); Creatinine,Serum 1.10 mg/dl (0.66-1.25); Estimated Glomerular Filt Rate 65 ml/min (>60); GFR (African American) 79 ML/MIN (>60); Glucose 93 mg/dl (74-100)
[2025-09-11 13:30] VITALS: BP 152/88; PULSE 58; O2SAT 97
[2025-09-11 13:33] VITALS: BP 108/64; PULSE 59; O2SAT 97
[2025-09-11] MEDS: 0.9 % SODIUM CHLORIDE 50 ML VIAL IV (13:34)
[2025-09-11] MEDS: IOPAMIDOL-370 (76%);100ML BOTTLE 85 ML IV (13:34)
[2025-09-11] MEDS: SODIUM CHLORIDE 0.9% 10ML SYR (RAD ONLY) 10 ML IV (13:34)
[2025-09-11] MEDS: NITROGLYCERIN 0.4MG SL TABLET SL (14:01)
== END 2025-09-11 13:55 | disposition home or self-care (01) ==
PROVIDERS: PCP Internal Medicine Adolescent Medicine; Visit Provider Internal Medicine Adolescent Medicine
DX: I25.10 Atherosclerotic heart disease of native coronary artery without angina pectoris (principal); R94.39 Abnormal result of other cardiovascular function study
CPT/HCPCS: 75574; 80048; Q9967